=== PATIENT | male | born 1990 | race Caucasian/White ===

== ENCOUNTER → 2018-11-19 14:52 | Outpatient (CLI) | payer OTHER, SELFPAY ==
[2018-11-19 18:18] LABS: Thyroid Stim Hormone (TSH) 1.52 uIU/mL (0.358-3.74)
== END ==
PROVIDERS: Visit Provider Family Medicine
DX: R07.89 Other chest pain (principal)
CPT/HCPCS: 36415; 84443

== ENCOUNTER → 2019-10-14 18:06 | Outpatient (CLI) | payer OTHER, SELFPAY | PROVIDERS: Referring Provider Nurse Practitioner Family; Visit Provider Nurse Practitioner Family | DX: J02.9 Acute pharyngitis, unspecified (principal) | CPT/HCPCS: 87070 ==

== ENCOUNTER → 2021-07-05 15:45 | Outpatient (CLI) | payer OTHER, SELFPAY ==
--- NOTE | 2021-07-05 13:20 | VAS_PTH ---
PATIENT: JAYME WOODY LOC: [facility] U#:[id number] AGE/SX: 35/M ROOM: RE07/05/[address]: Dr. Alli Savage MD : 1990 BED: DIS: SPEC #: [id number] RECD: 07/05/21 15:30 STATUS: ROSA YEMI #: [id number] LUCHO: 07/05/21 13:[address]: Alli Savage DEPT: SURGICAL PATHOLOGY RECD BY: Inna Camara ENTERED: 07/06/21 08:13 SP TYPE: VAS OTHR DR: Dr. Troy Cardenas MD Tissues: A - Vas deferens, NOS B - Vas deferens, NOS Procedures: Surgery Specimen Level II HEADER OPERATION: Bilateral partial vasectomy PRE-OP DIAGNOSIS: Sterilization TISSUE SUBMITTED: A ? Right vas deferens, B ? Left vas deferens MICROSCOPIC DIAGNOSIS A. Right vas deferens, partial vasectomy: Completely transected segment of vas deferens, no pathologic diagnosis. B. Left vas deferens, partial vasectomy: Completely transected segment of vas deferens, no pathologic diagnosis. BRENDA:harriet 07/07/2021 MICROSCOPIC DESCRIPTION Slides are reviewed. GROSS DESCRIPTION A - Received is one container designated right vas deferens. The specimen consists of a tubular segment of donis soft tissue measuring 0.5 cm in length and 0.3 cm in diameter. The specimen is sectioned and submitted entirely in one cassette. B - Received is one container designated left vas deferens. The specimen consists of a tubular segment of donis soft tissue measuring 0.4 cm in length and 0.2 cm in diameter. The specimen is sectioned and submitted entirely in one cassette. / BRENDA:harriet 07/06/21 TC:4 CPT: 18973 x2
== END ==
PROVIDERS: PCP Family Medicine; Referring Provider Surgery; Visit Provider Surgery
DX: Z30.2 Encounter for sterilization (principal)
CPT/HCPCS: 88302

== ENCOUNTER → 2021-08-13 12:17 | Outpatient (CLI) | payer OTHER, SELFPAY ==
[2021-08-13 17:34] LABS: Semen Analysis Post Vas ABSENT
== END ==
PROVIDERS: PCP Family Medicine; Referring Provider Family Medicine; Visit Provider Surgery
DX: Z30.2 Encounter for sterilization (principal)
CPT/HCPCS: 89321

== ENCOUNTER → 2022-01-25 | Outpatient (CLI) | payer OTHER, SELFPAY ==
[2022-01-25 17:53] LABS: Absolute Lymphocyte Count 1.21 X10^3/uL (0.83-4.51); Absolute Neutrophil Count 5.1 X10^3/uL (2.0-7.7); Basophil# 0.06 X10^3/uL; Basophil% 0.9 % (0-1); Eosinophils% 1.5 % (0-5); Hematocrit 44.1 % (40-54); Lymphocyte # 1.21 X10^3/ul (0.83-4.51); Lymphocyte % 17.7 % (19-41); Mean Corpuscular Hgb 30.7 pg (27.0-32.0); Mean Corpuscular Volume 90.4 fL (80-94); Mean Platelet Vol. 9.9 fl (6.2-12.0); Monocyte# 0.36 X10^3/uL; Monocyte% 5.3 % (0-10); NRBC Flagged by Analyzer 0 % (0-5); Neutrophil # 5.09 X10^3/uL (2.7-7.7); Neutrophil % 74.3 % (47-70); Platelet Count 212 K/mm3 (150-450); RBC Distribution Width CV 12.3 % (11.6-14.6); RBC Distribution Width SD 40.4 fl (35.1-43.9); Red Blood Count 4.88 M/mm3 (4.6-6.2); White Blood Count 6.8 K/mm3 (4.4-11.0)
[2022-01-25 18:41] LABS: ALB/GLOB Ratio 1.6 RATIO (0.9-2.4); AST(SGOT) 23 U/L (15-37); Alanine Aminotransfer ALT/SGPT 34 U/L (16-61); Albumin, Serum 4.4 g/dL (3.2-5.0); Alkaline Phosphatase 84 U/L (45-117); Anion Gap 6 (5-15); BUN 13 mg/dL (7-18); BUN/Creat Ratio 14.8 RATIO (10-20); Chloride 104 mmol/L (98-107); Creatinine, Serum 0.88 mg/dL (0.70-1.30); EST Glomerular Filtration Rate 107 mL/min (>60); Est Glom Filt Rate - Afr Amer 129 mL/min (>60); Globulin 2.8 g/dL (2.2-4.2); Glucose 74 mg/dL (74-106); Potassium 3.5 mmol/L (3.5-5.1); Protein, Total 7.2 g/dL (6.4-8.2); Sodium Level 140 mmol/L (136-145)
== END | disposition home or self-care (01) ==
LOC: MFPLAB 16:59
PROVIDERS: PCP Family Medicine; Visit Provider Family Medicine
DX: R00.2 Palpitations (principal)
CPT/HCPCS: 36415; 80053; 84443; 85025

== ENCOUNTER → 2022-04-20 | Outpatient (CLI) | payer OTHER, SELFPAY ==
--- NOTE | 2022-04-20 14:37 | RAD_ITS ---
EXAM: XR CHEST, 2 VIEWS CLINICAL INDICATION: chest pain TECHNIQUE: Frontal and lateral views of the chest. This report was created using [employer] report generation technology. COMPARISON: None. FINDINGS: LUNGS AND PLEURAL SPACES: Hyperinflation which may represent air trapping. No pneumothorax. No effusion. HEART: Normal. Normal heart size. MEDIASTINUM: Central airways and mediastinal contour are unremarkable. BONES/JOINTS: No acute abnormality. SOFT TISSUES: Normal. RAD/Chest PA and Lateral IMPRESSION: Hyperinflation which may represent air trapping. Electronically Signed: Dixon Keene MD at 16:57 EDT ,
== END | disposition home or self-care (01) ==
LOC: RAD 14:36
PROVIDERS: PCP Family Medicine; Referring Provider Internal Medicine Cardiovascular Disease; Visit Provider Internal Medicine Cardiovascular Disease
DX: R00.2 Palpitations (principal); I47.2 Ventricular tachycardia; R07.89 Other chest pain
CPT/HCPCS: 71046

== ENCOUNTER 2022-04-26 09:37 | Emergency (ER) | payer OTHER, SELFPAY ==
[2022-04-26 09:38] VITALS: BP 113/75; PULSE 70; RESP 14; TEMP 35.8; O2SAT 100; BMI 17.0
--- NOTE | 2022-04-26 09:56 | EKG12_ITS ---
Test Reason : CHEST\OTHER Blood Pressure : / mmHG Vent. Rate : 059 BPM Atrial Rate : 059 BPM P-R Int : 136 ms QRS Dur : 090 ms QT Int : 400 ms P-R-T Axes : 076 078 072 degrees QTc Int : 396 ms Sinus bradycardia Otherwise normal ECG Confirmed by YASMIN QUINONEZ, DALE ([id number]), offline editor SIDNEY SMALL ([id number]) on 04/27/2022 11:27:29 AM Referred By: NONA Confirmed By:DALE HOFFMAN MD
--- NOTE | 2022-04-26 09:57 | EDS_ITS ---
HPI History of Present Illness Chief Complaint: Chest Pain Detail of Chief Complaint: Chest pain and palpitations Informant: patient Narrative Narrative: Patient presents secondary to chest pressure and palpitations. Symptoms of been ongoing for quite some time and he recently wore a Holter monitor ordered by his PCP. This revealed evidence of PACs, PVCs, nonsustained V. tach, atrial tachycardia. Patient was seen by Dr. Lucas recently with plan to undergo echocardiogram and stress echo. This is scheduled for May. Patient states that he had a lot of palpitations last evening. He still has some palpitations currently with chest pressure. When he called Dr. Lucas's office this morning he was encouraged to come to the emergency room. [facility] Medical History Anxiety Back problem Consultation for sterilization GERD (gastroesophageal reflux disease) NSVT (nonsustained ventricular tachycardia) Home Medications fluticasone propionate 50 mcg/actuation nasal spray,suspension (Flonase Allergy Relief) 1 spray intranasal DAILY PRN allergy symptoms 04/20/22 [History Last Taken Unknown] metoprolol succinate 25 mg tablet,extended release 24 hr (Toprol XL) 25 mg PO DAILY #30 tabs 04/26/22 [Rx Last Taken Unknown] Allergy/AdvReac Type Severity Reaction Status Date / Time promethazine [From Phenergan] Allergy Intermediate psychotic Verified 04/26/22 09:38 like reaction Family History Daughter Asthma Mother Breast cancer Grandfather Diabetes Kidney disease Surgical History No history of previous surgery Social History Smoking Status: Current every day smoker tobacco type: cigarettes alcohol intake: current details: Rare substance use type: does not use caffeine: Yes Type: coffee Number of servings: 1 ROS ROS ED Constitutional Constitutional ED: Denies chills or fever(s) Eyes Eyes: Denies change in vision or discharge from eye(s) ENT ENT ED: Denies discharge from eye(s), rhinorrhea or sore throat Cardiovascular Cardiovascular: Reports chest pain and palpitations Respiratory/Chest Respiratory/Chest: Denies cough or dyspnea Gastrointestinal Gastrointestinal: Denies abdominal pain, diarrhea, nausea or vomiting Genitourinary Genitourinary ED: Denies dysuria Musculoskeletal Musculoskeletal: Denies back pain or extremity pain Integumentary Denies Abrasions or rash Neurologic Neurologic: Denies headache(s) or weakness Psychiatric Psychiatric: Denies anxiety or depression Allergic/Immunologic Allergic/Immunologic ED: Denies lip swelling or urticaria EXAM Physical Exam Const Vital Signs: 04/26/22 09:38 04/26/22 09:59 Temperature 96.5 F L Temperature Source Temporal Pulse Rate 70 Respiratory Rate 14 Respiratory Effort Normal Non-Labored Respiratory Pattern Normal Blood Pressure 113/75 Blood Pressure Mean 87 Pulse Ox 100 Oxygen Delivery Method Room Air Positive well nourished and well developed General Appearance ED: well developed HEENT Reports normocephalic and head/scalp atraumatic Eyes PERRL and EOMs intact bilaterally Neck supple Chest Wall inspection of chest normal and palpation of chest normal Resp normal respiratory effort and clear to auscultation bilaterally Cardio regular rate and regular rhythm GI normal to inspection, nondistended, normoactive bowel sounds Palpation: soft Back/Spine no CVA tenderness Extremity normal to inspection Neuro oriented x3 and no sensory deficits noted Sensorium / Orientation: alert Motor Exam: strength 5/5 throughout Psych mental status grossly normal Skin no rashes or lesions noted Heart Score History: Slightly/Non-Suspicious ECG: Normal Age: </= 45 years Risk Factors: No Risk Factors Troponin: </= Normal Limit Score: 0 MDM MDM MDM Narrative Medical decision making narrative: Patient placed on cardiac monitor technician. EKG, chest x-ray, lab work obtained. Lab Data Attestation: I reviewed the patient's lab results. Labs: Laboratory Results - last 24 hr 04/26/22 04/26/22 04/26/22 10:05 10:05 10:05 WBC 4.8 RBC 4.86 Hgb 15.4 Hct 43.2 MCV 88.9 MCH 31.7 MCHC 35.6 RDW Std Deviation 39.4 RDW Coeff of Fiordaliza 12.1 Plt Count 179 MPV 9.4 Immature Gran % (Auto) 0.200 Neut % (Auto) 67.3 Lymph % (Auto) 22.3 Falls % (Auto) 7.2 Eos % (Auto) 1.9 Baso % (Auto) 1.1 H Absolute Neuts (auto) 3.2 Absolute Lymphs (auto) 1.06 Nucleated RBC % 0 D-Dimer Quant (PE/DVT) < 0.27 L Sodium 141 Potassium 4.4 Chloride 109 H Carbon Dioxide 31.0 Anion Gap 1 L BUN 15 Creatinine 0.84 Estim Creat Clear Calc 115.17 Est GFR (MDRD) Af Amer 135 Est GFR (MDRD) Non-Af 111 BUN/Creatinine Ratio 17.8 Glucose 95 Calcium 8.9 Troponin I High Sens 8 Radiography Chest X-Ray - ED: 1 View and - (Hyperinflation with no other acute abnormalities noted.) Diagnostic Testing: Clinical Impression(s) from Imaging Studies Chest X-Ray 04/26/22 10:10 IMPRESSION: Hyperinflation. The lungs are clear. Electronically Signed: Kennedy Brown MD at 10:48 EDT , EKG Initial EKG: Attestation: I personally reviewed and interpreted this EKG as follows: Interpretation: Sinus Bradycardia (Sinus bradycardia 59 bpm. No acute ischemia. No ectopy.) Treatment and Re-Evaluation Narrative: Test results are unremarkable including a normal CBC, chemistry studies, troponin, D-dimer. Chest x-ray reveals hyperinflation with no infiltrate. EKG reveals no obvious abnormalities. I did speak with Dr. Lucas. In light of the patient's increased palpitations he does feel we need to start patient on low-dose Toprol XL. He will only be started on 25 mg secondary to his relatively low heart rate. This was discussed with the patient. He was advised to monitor his symptoms of for several days while taking this. Plan will be to continue with outpatient testing as previously scheduled. If symptoms worsen he is to call the office. Return instructions are also provided. Discharge Plan Triage Chief Complaint: Chest Pain Other Complaint: Palpitations ED Provider: Jahaira Dash Dx/Rx/DC Orders Clinical Impression: Palpitations Instructions: ED Palpitations Prescriptions: New metoprolol succinate [Toprol XL] 25 mg tablet extended release 24 hr 25 mg PO DAILY Qty: 30 0RF No Action fluticasone propionate [Flonase Allergy Relief] 50 mcg/actuation spray,suspension 1 spray intranasal DAILY PRN (Reason: allergy symptoms) Rx Instructions: administer into each nostril Primary Care Provider: Troy Cardenas Referrals: Troy Lucas MD [Med Staff - Active Staff] - Keep Tara appointment Troy Cardenas MD [Primary Care Provider] - Disposition Disposition: Home, Self Care
[2022-04-26 10:10] LABS: Absolute Lymphocyte Count 1.06 X10^3/uL (0.83-4.51); Absolute Neutrophil Count 3.2 X10^3/uL (2.0-7.7); Basophil# 0.05 X10^3/uL; Basophil% 1.1 % (0-1); Eosinophil# 0.09 X10^3/uL; Eosinophils% 1.9 % (0-5); Hematocrit 43.2 % (40-54); Hemoglobin 15.4 g/dL (13.0-16.5); Lymphocyte # 1.06 X10^3/ul (0.83-4.51); Lymphocyte % 22.3 % (19-41); Mean Corp Hgb Conc 35.6 g/dL (32-36); Mean Corpuscular Hgb 31.7 pg (27.0-32.0); Mean Corpuscular Volume 88.9 fL (80-94); Mean Platelet Vol. 9.4 fl (6.2-12.0); Monocyte# 0.34 X10^3/uL; Monocyte% 7.2 % (0-10); NRBC Flagged by Analyzer 0 % (0-5); Neutrophil % 67.3 % (47-70); Platelet Count 179 K/mm3 (150-450); RBC Distribution Width CV 12.1 % (11.6-14.6); RBC Distribution Width SD 39.4 fl (35.1-43.9); Red Blood Count 4.86 M/mm3 (4.6-6.2); White Blood Count 4.8 K/mm3 (4.4-11.0)
--- NOTE | 2022-04-26 10:10 | RAD_ITS ---
STUDY: X-RAY CHEST REASON FOR EXAM: Male, 32 years old. Chest pain and palpitations. TECHNIQUE: Single AP portable view of the chest. COMPARISON: Comparison is made with prior study dated 04/20/2022. FINDINGS: EKG electrodes are seen. Hyperinflation. The lungs are clear. There is no demonstrated pleural abnormality. Normal size heart. Normal mediastinum and delores. Normal visualized pulmonary arteries. Normal visualized aortic arch and descending thoracic aorta. Normal visualized thoracic spine. Normal visualized ribs, clavicles, and shoulders. There is no demonstrated abnormality of the visualized soft tissue structures of the upper abdomen. RAD/Chest 1 View (Portable) IMPRESSION: Hyperinflation. The lungs are clear. Electronically Signed: Kennedy Brown MD at 10:48 EDT ,
[2022-04-26 10:21] LABS: D-Dimer Quantitative (DVT/PE) < 0.27 FEU/ug/m (0.27-0.49)
[2022-04-26 10:28] LABS: Anion Gap 1 (5-15); BUN 15 mg/dL (7-18); BUN/Creat Ratio 17.8 RATIO (10-20); Calcium,Total 8.9 mg/dL (8.5-10.1); Chloride 109 mmol/L (98-107); Creatinine, Serum 0.84 mg/dL (0.70-1.30); EST Glomerular Filtration Rate 111 mL/min (>60); Est Glom Filt Rate - Afr Amer 135 mL/min (>60); Estimated Creatinine Clearance 115.17 ml/min; Glucose 95 mg/dL (74-106); Potassium 4.4 mmol/L (3.5-5.1); Sodium Level 141 mmol/L (136-145); Troponin-I HS (w/2H Reflex) 8 pg/mL (3.0-78.0)
[2022-04-26 11:30] VITALS: BP 105/66; PULSE 56; RESP 16; O2SAT 99
[2022-04-26 12:08] LABS: Reflex Troponin-HS? (from REC) Y
== END 2022-04-26 11:30 | disposition home or self-care (01) ==
PROVIDERS: Emergency Provider Emergency Medicine; PCP Family Medicine; Visit Provider Emergency Medicine
DX: R00.2 Palpitations (principal); F17.210 Nicotine dependence, cigarettes, uncomplicated
CPT/HCPCS: 71045; 80048; 84484; 85025; 85379; 93005; 99284; A4216

== ENCOUNTER → 2022-05-18 | Outpatient (CLI) | payer OTHER, SELFPAY ==
--- NOTE | 2022-05-18 13:14 | STE_ITS ---
Reason For Study: PALPS, CHEST TIGHTNESS Stress Results Protocol: Michael Protocol Maximum Predicted HR: 187 bpm Target HR: 159 bpm % Maximum Predicted HR: 89 % DurationHeart Rate Stage (mm:ss) (bpm) BP BASELINE 65 100/54 STAGE 1 3:00 108 120/70 STAGE 2 3:00 122 140/70 STAGE 3 3:00 136 136/70 STAGE 4 3:00 157 142/60 STAGE 5 0:30 166 / RECOVERY 104 100/62 Stress Duration: 12:30 mm:ss Maximum Stress HR: 166 bpm METS: 15 Baseline Echocardiogram Findings Stress Echo Wall motion Data Resting WM Intermediate WM Stress WM Resting Wall Motion Wall Motion Stress All segments Normal. All segments Hyperkinetic. Ejection Fraction 55 %. Ejection Fraction 65 %. Stress Results Heart rate response: Technically adequate (percent predicted maximal heart rate greater than 90%) Blood pressure response: Normal resting blood pressure-appropriate response Rhythm: Isolated PVC during exercise and recovery Functional capacity: Good Stopped secondary to: Leg discomfort. EKG Data Baseline ECG: Normal sinus. Exercise ECG: Somatic/motion artifact with no obvious ECG changes. Symptoms with Stress No complaint of chest discomfort during exercise or recovery. ECHO/Stress Test Echo w/o Contrast Interpretation Summary Negative (adequate) stress echocardiogram Ordering Physician: Troy Lucas Referring Physician: Troy Lucas Performed By: Ailin Gale RDCS
--- NOTE | 2022-05-18 13:14 | ECHOD_ITS ---
Reason For Study: Arrhythmia Procedure This was a 2D Doppler, Color Flow transthoracic echocardiogram. The exam was of adequate technical quality. Exam performed in department. Left Ventricle Normal LV size. Left ventricular systolic function is normal. The estimated ejection fraction is 55 %. No evidence for diastolic dysfunction. No regional wall motion abnormalities noted. Right Ventricle Normal RV size. Normal systolic function. Atria Normal left atrium. Normal right atrium. No doppler evidence for ASD. Mitral Valve There is no mitral annular calcification. Normal mitral valve. Trivial mitral valve insufficiency. Tricuspid Valve Normal tricuspid valve. Trivial tricuspid valve insufficiency. Unable to estimate RV systolic pressure due to insufficient tricuspid regurgitant envelope. Aortic Valve Trisinus/trileaflet aortic valve. Normal aortic valve. Pulmonic Valve The pulmonic valve is not well visualized. Great Vessels Normal sized aortic root. Pericardium/Pleural No pericardial effusion. MMode/2D Measurements & Calculations LVIDd: 4.4 cm IVSd: 0.67 cm Ao root diam: 2.9 cm LVIDs: 3.1 cm LVPWd: 0.97 cm RVDd: 2.8 cm FS: 30.9 % LAV(MOD-bp): 28.6 ml LVAd ap4: 28.3 cm2 LVAd ap2: 32.5 cm2 LAV(MOD-bp) Indexed: 14.2 ml/m2 LVLd ap4: 7.9 cm LVLd ap2: 8.4 cm LAV(MOD-sp2): 23.1 ml EDV(MOD-sp4): 85.4 ml EDV(MOD-sp2): 103.0 ml LAV(MOD-sp4): 34.6 ml EDV(sp4-el): 85.7 ml EDV(sp2-el): 106.6 ml LVAs ap4: 17.6 cm2 LVAs ap2: 19.1 cm2 LVLs ap4: 7.0 cm LVLs ap2: 7.3 cm ESV(MOD-sp4): 37.5 ml ESV(MOD-sp2): 41.5 ml ESV(sp4-el): 37.8 ml ESV(sp2-el): 42.6 ml EF(MOD-sp4): 56.1 % EF(MOD-sp2): 59.7 % EF(sp4-el): 55.8 % SV(MOD-sp4): 48.0 ml SV(MOD-sp2): 61.5 ml SV(sp4-el): 47.8 ml LA dimension(2D): 3.2 cm LA A4 area: 14.5 cm2 RA A4 area: 10.7 cm2 Doppler Measurements & Calculations MV E max tone: 61.5 cm/sec Lat Peak E' Tone: 17.7 cm/sec Med Peak E' Tone: 11.6 cm/sec MV A max tone: 40.7 cm/sec E/E' lat: 3.5 E/E' med: 5.3 MV E/A: 1.5 Ao V2 max: 123.0 cm/sec LV V1 max: 106.4 cm/sec PA V2 max: 98.3 cm/sec Ao max P.0 mmHg LV V1 max P.5 mmHg ECHO/Echo Complete Interpretation Summary Left ventricular systolic function is normal. The estimated ejection fraction is 55 %. Trivial mitral valve insufficiency. Trivial tricuspid valve insufficiency. Unable to estimate RV systolic pressure due to insufficient tricuspid regurgita nt envelope. No evidence for diastolic dysfunction. Ordering Physician: Troy Lucas Referring Physician: Troy Cardenas Performed By: Ailin Gale, AGUEDA
== END | disposition home or self-care (01) ==
LOC: CVS 13:13
PROVIDERS: PCP Family Medicine; Referring Provider Internal Medicine Cardiovascular Disease; Visit Provider Internal Medicine Cardiovascular Disease
DX: R00.2 Palpitations (principal); I47.2 Ventricular tachycardia; R07.89 Other chest pain
CPT/HCPCS: 93017; 93306; 93350

== ENCOUNTER → 2023-01-31 | Outpatient (CLI) | payer OTHER, SELFPAY ==
--- NOTE | 2023-01-31 13:05 | RAD_ITS ---
STUDY: X-RAY CHEST REASON FOR EXAM: Male, 32 years old. Muscle strain with left rib pain. TECHNIQUE: Frontal and lateral views of the chest. COMPARISON: April 26, 2022. FINDINGS: Marked hyperinflation with flattening of hemidiaphragms and hyperlucency, compatible with COPD, unchanged. There is no demonstrated pleural abnormality. Normal size heart. Normal mediastinum and delores. Normal visualized pulmonary arteries. Normal visualized aortic arch and descending thoracic aorta. Normal visualized thoracic spine. Normal visualized ribs, clavicles, and shoulders. No abnormality of the visualized soft tissue structures of the upper abdomen. RAD/Chest PA and Lateral IMPRESSION: Stable findings compatible with COPD. No acute or active cardiopulmonary disease. Electronically Signed: Sachin Myrick MD at 14:50 EDT ,
--- NOTE | 2023-01-31 13:05 | RAD_ITS ---
STUDY: X-RAY - UNILATERAL RIBS ( LEFT ) REASON FOR EXAM: Male, 32 years old. Left rib pain. TECHNIQUE: 4 view(s) of the ribs. COMPARISON: None. FINDINGS: No displaced rib fracture identified. Mild hyperinflation noted. RAD/Ribs Unil 2V No CXR IMPRESSION: Hyperinflation with no displaced rib fracture. Electronically Signed: Sachin Myrick MD at 14:57 EDT ,
== END | disposition home or self-care (01) ==
PROVIDERS: PCP Family Medicine; Referring Provider Family Medicine; Visit Provider Family Medicine
DX: M94.0 Chondrocostal junction syndrome [Tietze] (principal)
CPT/HCPCS: 71046; 71100

== ENCOUNTER 2023-04-29 18:53 | Emergency (ER) | payer OTHER, SELFPAY ==
[2023-04-29 18:54] VITALS: BP 126/73; PULSE 73; RESP 15; TEMP 36.2; O2SAT 99; BMI 16.8
--- NOTE | 2023-04-29 19:10 | EKG12_ITS ---
Test Reason : PALPITATIONS Blood Pressure : / mmHG Vent. Rate : 070 BPM Atrial Rate : 070 BPM P-R Int : 112 ms QRS Dur : 092 ms QT Int : 380 ms P-R-T Axes : 011 072 069 degrees QTc Int : 410 ms Normal sinus rhythm Normal ECG When compared with ECG of 26-APR-2022 09:50, No significant change was found Confirmed by SUJATA BUSTAMANTE MD ([id number]), photographic editor MEMO BAI ([id number]) on 06/21/2023 2:05:07 PM Referred By: AZAEL Confirmed By:SUJATA BUSTAMANTE MD
[2023-04-29] MEDS: 0.9% Normal Saline 1,000 ML 1000 ML IV (19:19)
--- NOTE | 2023-04-29 19:29 | EDS_ITS ---
<Statement entered by Jahaira Dash MD - 04/29/23 21:34> I have personally performed a face to face assessment of the patient and have reviewed the LYNDSEY Note. Patient presents with 1 week history of intermittent palpitations. He will describe a fluttering sensation in his chest that will go on just a short time. He denies feeling lightheaded or as if he is going to pass out. Patient does have a history of SVT as well as V. tach. He states he is currently being evaluated for possible Marfan syndrome. Patient sitting upright in bed no acute distress. Head and neck examination unremarkable. Heart is regular rate and rhythm. Lung sounds are clear. Abdomen is soft and nontender. Neuro exam is unremarkable. Patient placed on conveyor monitor. Lab work unremarkable other than slight increase to his creatinine to 1.4. Last year his creatinine was 0.84. Patient was given a liter of fluids here. EKG is sinus with no evidence of acute ischemia. Normal intervals. Patient is reassured with the findings. He will continue close follow-up. Return instructions were provided. HPI History of Present Illness Chief Complaint: Palpitations Narrative Narrative: Patient is a 33-year-old male with history of anxiety, palpitations, who is currently getting worked up for Marfan syndrome presents to the emergency department with complaints of 1 week of ongoing palpitations, in the last 40 hours, he states he got more anxious, he actually started Zoloft that his primary care doctor gave him, he has been taking 2 days of this. He denies any fevers or chills. Denies any dizziness. He denies any sharp chest pain, he states sometimes he does feel pressure. He denies any diaphoresis. Patient has been here before for similar symptoms [facility] Medical History Anxiety Back problem Consultation for sterilization GERD (gastroesophageal reflux disease) NSVT (nonsustained ventricular tachycardia) Home Medications diltiazem HCl 120 mg capsule,extended release 24 hr 120 mg PO QHS #30 caps 05/12/22 [Rx Last Taken Unknown] sertraline 25 mg tablet 25 mg PO QHS 04/29/23 [History Last Taken Unknown] Allergy/AdvReac Type Severity Reaction Status Date / Time promethazine [From Phenergan] Allergy Intermediate psychotic Verified 08/26/23 19:20 like reaction Family History Daughter Asthma Mother Breast cancer Grandfather Diabetes Kidney disease Surgical History No history of previous surgery Social History Smoking Status: Former smoker alcohol intake: current details: Rare substance use type: does not use caffeine: Yes Type: coffee Number of servings: 1 ROS ROS ED ROS Narrative Constitutional: Negative for fever, chills, weight loss, weakness Eyes: Negative for vision loss, vision change, double vision ENT: Negative for any sore throat, ear pain, congestion Cardiovascular: Negative for any chest pain, tightness. Palpitations Respiratory: Negative for any cough, sputum production, hemoptysis, dyspnea, dyspnea on exertion, orthopnea Gastrointestinal: Negative for any abdominal pain, nausea, vomiting, diarrhea, constipation, blood in stool, blood in vomit : Negative for any urinary frequency, dysuria, retention, blood in urine Muscle skeletal: Negative for any muscle joint pain, stiffness, myalgias, arthralgias, neck pain, back pain Neurological: Negative for any headache, syncope, numbness or tingling, dizziness Skin: Negative for any rashes, lumps, itching, abrasions, lacerations Psychiatric: Negative for any depression, stress, suicidal ideation, homicidal ideation. Anxiety Hematologic: Negative for any easy bruising, excessive bruising, easy bleeding Allergies: Negative for any eczema, hives, rash EXAM Physical Exam Narrative Exam Narrative: Vital signs reviewed. HEET: Head normocephalic atraumatic, TMs clear bilaterally. Posterior pharynx is clear, moist mucous membranes. Nares clear bilaterally. Neck: Supple with no lymphadenopathy or tenderness. No signs of meningismus, negative jolt sign. Cardiac: Regular rate and rhythm no murmurs gallops or rubs, equal peripheral pulses bilaterally. Respiratory: Lungs clear to auscultation bilaterally. No chest tenderness. Abdomen: Soft, nontender, nondistended. No abdominal bruit or pulsatile masses. No hepatosplenomegaly Extremities: No peripheral edema, no signs of gross trauma or deformity. Active full range of motion of all extremities. Neuro: Cranial nerves II through XII intact, no focal neurological deficits. Skin: Clean dry and intact with no rash, purpura, petechiae, vesicles or pustules. Backs/flank: No CVA tenderness, no midline spinal tenderness, no deformity. Psych: Normal mood and affect. No SI, HI or acute psychosis. Const Vital Signs: 04/29/23 18:54 04/29/23 19:22 Temperature 97.2 F L Temperature Source Temporal Pulse Rate 73 Respiratory Rate 15 Respiratory Effort Normal Blood Pressure 126/73 H Blood Pressure Mean 90 Pulse Ox 99 Oxygen Delivery Method Room Air Positive well nourished and well developed General Appearance ED: well developed MDM MDM Lab Data Labs: Laboratory Results - last 24 hr 04/29/23 19:15 WBC 6.6 RBC 4.39 L Hgb 14.3 Hct 38.7 L MCV 88.2 MCH 32.6 H MCHC 37.0 H RDW Std Deviation 38.5 RDW Coeff of Fiordaliza 11.9 Plt Count 215 MPV 9.5 Immature Gran % (Auto) 0.200 Neut % (Auto) 69.0 Lymph % (Auto) 21.8 [place] % (Auto) 6.2 Eos % (Auto) 2.3 Baso % (Auto) 0.5 Absolute Neuts (auto) 4.6 Absolute Lymphs (auto) 1.44 Nucleated RBC % 0 Sodium 142 Potassium 3.6 Chloride 110 H Carbon Dioxide 27.0 Anion Gap 5 BUN 13 Creatinine 1.43 H Estim Creat Clear Calc 66.31 Est GFR (MDRD) Af Amer 73 Est GFR (MDRD) Non-Af 60 BUN/Creatinine Ratio 9.1 L Glucose 102 Calcium 8.9 Troponin I High Sens 9 Radiography Diagnostic Testing: Clinical Impression(s) from Imaging Studies Chest X-Ray 04/29/23 19:30 IMPRESSION: Mild hyperaeration. Electronically Signed: Dennis Anglin DO at 19:45 EDT Reading Location ID and State: [facility] / [place] Tel [phone], Service support , EKG Normal sinus rhythm: Attestation: I personally reviewed and interpreted this EKG as follows: Comments: Normal sinus rhythm, rate of 70 bpm, ID 112 ms,, no acute ST elevation, no acute infarct noted Treatment and Re-Evaluation :: Patient appears generally well, patient appears nontoxic, vital signs are stable. Patient presents to the emergency department with concerns of palpitations, anxiety, he is here for evaluation. Patient is currently getting worked up for Marfan's syndrome, however patient is in no distress. Patient appears to be in no distress. Patient was given cardiac work-up including a troponin, basic laboratory eval as well as a chest x-ray. Patient received a two-view chest x-ray to her by ER physician, this showed mild hyperaeration however no acute process. Mediastinum within normal limits. Patient was given 1 L normal saline. Patient's CBC was unremarkable, chemistries show slight increase in creatinine at 1.43, roughly 1 year ago he was 0.84. Patient did receive 1 L of fluids. Patient troponin was negative. I did speak with the patient regarding his fluid intake. He is instructed to increase his fluids probably he will follow-up outpatient as well as receive repeat blood work. All questions answered, he is given strict return precaution. Patient happy with plan of care, he will allow the [facility] 6 weeks to work. All questions answered, patient stable for discharge Discharge Plan Triage Chief Complaint: Palpitations ED Midlevel Provider: Troy Solomon ED Provider: Jahaira Dash Dx/Rx/DC Orders Clinical Impression: Heart palpitations, Acute renal insufficiency Instructions: ED Palpitations, ED Renal Insufficiency Prescriptions: No Action sertraline 25 mg tablet 25 mg PO QHS diltiazem HCl 120 mg capsule,extended release 24hr 120 mg PO QHS Qty: 30 11RF Primary Care Provider: Troy Cardenas Referrals: Troy Cardenas MD [Primary Care Provider] - Activity Restrictions/Additional Instructions: Please follow-up outpatient. Return for any worsening symptoms. Disposition Disposition: Home, Self Care
--- NOTE | 2023-04-29 19:30 | RAD_ITS ---
INDICATION: palpitations EXAMINATION/TECHNIQUE: X-RAY - XR Chest 2 Views COMPARISON: FINDINGS: LINES/DEVICES: None. LUNGS: Hyperaeration. No consolidation, edema or effusion. No pneumothorax. MEDIASTINUM AND CARDIOVASCULAR STRUCTURES: Cardiac silhouette not enlarged. Central airways and mediastinal contour are unremarkable. BONES AND SOFT TISSUES: Unremarkable. RAD/Chest PA and Lateral IMPRESSION: Mild hyperaeration. Electronically Signed: Dennis Anglin DO at 19:45 EDT ,
[2023-04-29 19:44] LABS: Absolute Lymphocyte Count 1.44 X10^3/uL (0.83-4.51); Absolute Neutrophil Count 4.6 X10^3/uL (2.0-7.7); Basophil# 0.03 X10^3/uL; Basophil% 0.5 % (0-1); Eosinophil# 0.15 X10^3/uL; Eosinophils% 2.3 % (0-5); Hematocrit 38.7 % (40-54); Hemoglobin 14.3 g/dL (13.0-16.5); Lymphocyte # 1.44 X10^3/ul (0.83-4.51); Lymphocyte % 21.8 % (19-41); Mean Corpuscular Hgb 32.6 pg (27.0-32.0); Mean Corpuscular Volume 88.2 fL (80-94); Mean Platelet Vol. 9.5 fl (6.2-12.0); Monocyte# 0.41 X10^3/uL; Monocyte% 6.2 % (0-10); NRBC Flagged by Analyzer 0 % (0-5); Neutrophil # 4.56 X10^3/uL (2.7-7.7); Platelet Count 215 K/mm3 (150-450); RBC Distribution Width CV 11.9 % (11.6-14.6); RBC Distribution Width SD 38.5 fl (35.1-43.9); Red Blood Count 4.39 M/mm3 (4.6-6.2); White Blood Count 6.6 K/mm3 (4.4-11.0)
[2023-04-29 20:12] LABS: Anion Gap 5 (5-15); BUN 13 mg/dL (7-18); BUN/Creat Ratio 9.1 RATIO (10-20); Calcium,Total 8.9 mg/dL (8.5-10.1); Chloride 110 mmol/L (98-107); Creatinine, Serum 1.43 mg/dL (0.70-1.30); EST Glomerular Filtration Rate 60 mL/min (>60); Est Glom Filt Rate - Afr Amer 73 mL/min (>60); Estimated Creatinine Clearance 66.31 ml/min; Glucose 102 mg/dL (74-106); Potassium 3.6 mmol/L (3.5-5.1); Sodium Level 142 mmol/L (136-145); Troponin-I HS 9 pg/mL (3.0-78.0)
== END 2023-04-29 20:56 | disposition home or self-care (01) ==
PROVIDERS: Nurse Practitioner; Emergency Provider Emergency Medicine; PCP Family Medicine; Visit Provider Emergency Medicine
DX: R00.2 Palpitations (principal); F41.9 Anxiety disorder, unspecified; Z87.891 Personal history of nicotine dependence; N28.9 Disorder of kidney and ureter, unspecified; Z79.899 Other long term (current) drug therapy
CPT/HCPCS: 71046; 80048; 84484; 85025; 93005; 99283

== ENCOUNTER → 2023-07-03 | Outpatient (CLI) | payer OTHER, SELFPAY ==
[2023-07-03 16:57] LABS: Anion Gap 4 (5-15); BUN 11 mg/dL (7-18); BUN/Creat Ratio 11.9 RATIO (10-20); Calcium,Total 9.4 mg/dL (8.5-10.1); Chloride 107 mmol/L (98-107); Cholesterol 134 mg/dL (200); Creatinine, Serum 0.93 mg/dL (0.70-1.30); EST Glomerular Filtration Rate 99 mL/min (>60); Est Glom Filt Rate - Afr Amer 120 mL/min (>60); Glucose 77 mg/dL (74-106); High Density Lipoprotein 56 mg/dL; Potassium 4.3 mmol/L (3.5-5.1); Sodium Level 139 mmol/L (136-145); Triglycerides 71 mg/dL; Very Low Density Lipoprotein 14 mg/dL (5-40)
== END | disposition home or self-care (01) ==
LOC: MFPLAB 12:07
PROVIDERS: PCP Family Medicine; Visit Provider Family Medicine
DX: Z00.00 Encounter for general adult medical examination without abnormal findings (principal)
CPT/HCPCS: 36415; 80048; 80061

== ENCOUNTER 2023-07-05 06:30 | Emergency (ER) | payer SELFPAY ==
[2023-07-05 06:31] VITALS: BP 105/73; PULSE 54; RESP 18; TEMP 36.4; O2SAT 98; BMI 18.7
--- NOTE | 2023-07-05 07:09 | EKG12_ITS ---
Test Reason : Blood Pressure : / mmHG Vent. Rate : 053 BPM Atrial Rate : 053 BPM P-R Int : 120 ms QRS Dur : 082 ms QT Int : 422 ms P-R-T Axes : 054 076 074 degrees QTc Int : 395 ms Sinus bradycardia Otherwise normal ECG Confirmed by REMI QUINONEZ, CLIFTON ([id number]), make up editor MEMO BAI ([id number]) on 07/17/2023 7:56:17 AM Referred By: Confirmed By:PIOTR KHALIL MD
--- NOTE | 2023-07-05 07:10 | EX.ED.DYSGE1 ---
HPI History of Present Illness Chief Complaint: Syncope Detail of Chief Complaint: Near syncope. No LOC. Informant: patient Onset/Context/Timing Onset: Today Context: Sudden Onset Current Severity: Gone Maximum Severity: Moderate Narrative Narrative: 33-year-old male history of nonsustained V. tach. Today he was upstairs training for his new job. He had a near syncopal episode. He did not pass out. He did not fall or hit his head. He had no chest pain, shortness of breath or abdominal pain. He denies any nausea, vomiting or diarrhea. He said he ate a very small breakfast this morning. Currently he is feeling better than headache. Prior similar symptoms: No Recent Illness/Hospitalization: No PFSH PFSH Medical History Anxiety Back problem Consultation for sterilization GERD (gastroesophageal reflux disease) NSVT (nonsustained ventricular tachycardia) Home Medications sertraline 25 mg tablet 25 mg PO QHS 04/29/23 [History Last Taken Unknown] diltiazem HCl 120 mg capsule,extended release 24 hr 120 mg PO QHS #90 caps 05/22/23 [Rx Last Taken Unknown] Allergy/AdvReac Type Severity Reaction Status Date / Time promethazine [From Phenergan] Allergy Intermediate psychotic Verified 04/29/23 19:20 like reaction Family History Daughter Asthma Mother Breast cancer Grandfather Diabetes Kidney disease Surgical History No history of previous surgery Social History Smoking Status: Former smoker alcohol intake: current details: Rare substance use type: does not use caffeine: Yes Type: coffee Number of servings: 1 ROS ROS ED ROS Narrative Denies recent illness. Review of Systems ROS Unobtainable: Denies due to encephalopathy Constitutional Constitutional ED: Denies chills or fever(s) Eyes Eyes: Denies blurry vision ENT ENT ED: Denies ear pain Cardiovascular Cardiovascular: Denies chest pain, palpitations or racing heartbeat Respiratory/Chest Respiratory/Chest: Denies cough or dyspnea Gastrointestinal Gastrointestinal: Denies abdominal pain, diarrhea, nausea or vomiting Genitourinary Genitourinary ED: Denies dysuria or hematuria Musculoskeletal Musculoskeletal: Denies arthralgias, back pain or myalgias Integumentary Denies abscess or Abrasions Neurologic Neurologic: Reports headache(s) Psychiatric Psychiatric: Denies anxiety Endocrine Endocrinology: Denies cold intolerance Hematologic/Lymphatic Hematologic/Lymphatic: Reports none Allergic/Immunologic Allergic/Immunologic ED: Denies mouth swelling, tongue swelling or urticaria EXAM Physical Exam Narrative Exam Narrative: Well-appearing 33-year-old male. Vital signs stable afebrile. He does not look septic toxic or in any distress. Sitting upright in bed. HEENT exam unremarkable. No signs of trauma. Pupils round react to light. No facial droop. Normal speech. Neck nontender. No JVD. Lungs clear to auscultation bilaterally. Heart regular rhythm rate about 60 no murmur. Chest wall and ribs nontender. Abdomen soft nontender. No peritoneal signs. Back nontender. Moving all 4 extremities. 5-5 motor strength. Dorsi plantarflexion intact. Normal range of motion. No deformity. Nontender. No edema in the lower extremities. Neurologically is awake and alert with no focal motor deficits. NIH score is 0. Answering questions and following commands. Const Vital Signs: 07/05/23 06:31 07/05/23 07:29 Temperature 97.6 F L Temperature Source Oral Pulse Rate 54 L Pulse Rate [Lying] 56 L Pulse Rate [Sitting (for 1 minute prior to obtaining)] 64 Pulse Rate [Standing (for 1 minute prior to obtaining)] 62 Respiratory Rate 18 Blood Pressure 105/73 Blood Pressure [Lying] 99/60 Blood Pressure [Sitting (for 1 minute prior to obtaining)] 106/71 Blood Pressure [Standing (for 1 minute prior to obtaining)] 98/69 Blood Pressure Mean 83 Blood Pressure Mean [Lying] 73 Blood Pressure Mean [Sitting (for 1 minute prior to obtaining)] 82 Blood Pressure Mean [Standing (for 1 minute prior to obtaining)] 78 Pulse Ox 98 Oxygen Delivery Method Room Air Positive well nourished and well developed; Negative for obese, cachectic, contractures or unkempt General Appearance ED: well developed and NAD; Negative for unkempt, cachectic, contractures, cyanotic, diaphoretic or pallor Nutritional Appearance: Negative for cachectic or obese HEENT Reports moist mucous membranes; Denies dry mucous membranes Negative for trauma or tenderness Mouth ED: No dry mucous membranes Mouth: No dry mucous membranes Eyes PERRL and EOMs intact bilaterally General Eye ED: Negative for pale conjunctiva or scleral icterus Neck no lymphadenopathy, supple and no JVD General: Negative for tenderness Lymph Lymphatic: Negative for other Chest Wall inspection of chest normal and palpation of chest normal Chest: Negative for other Resp normal respiratory effort and clear to auscultation bilaterally Effort and Inspection: Negative for retractions Auscultation: Negative for rales, rhonchi or wheezes Cardio regular rate, regular rhythm, S1 normal heart sound, S2 normal heart sound and no murmurs Palpation: Negative for palpable S3 or palpable S4 Rate: Negative for bradycardia or tachycardic Rhythm: Negative for abnormal rhythm GI normal to inspection, nondistended, normoactive bowel sounds, non-tender, non-distended and no masses Inspection: Negative for abdominal distention Auscultation: normoactive bowel sounds Palpation: soft; Negative for tender or guarding Back/Spine no CVA tenderness General Back: Negative for CVA tenderness Cervical Spine: Negative for cervical spine tenderness Thoracic Spine / Upper Back: Negative for thoracic spinal tenderness or paraspinal muscle tenderness Lumbar Spine / Lower Back: Negative for lumbar spinal tenderness Extremity normal to inspection General Extremety ED: Negative for edema or tenderness General Extremity: Negative for edema Neuro oriented x3 and CN's II-XII intact bilaterally Sensorium / Orientation: alert; Negative for lethargic or stuporous Motor Exam: strength 5/5 throughout Psych mental status grossly normal Appearance: Negative for unkempt Attitude: No agitated Mood & Affect: Negative for depressed, anxious or tearful Skin no rashes or lesions noted, no wounds and skin turgor normal General Skin Exam: elasticity normal; Negative for jaundice or pallor Lesions: No lesion noted Rashes: No rashes noted Trauma: Negative for abrasion Wounds: Negative for wounds noted MDM MDM MDM Narrative Medical decision making narrative: 33-year-old male with near syncopal episode. Exam currently is totally normal. Check an EKG for an abnormal rhythm even though his on exam he is in a sinus rhythm around 60. BG T and orthostatic vital signs. He has had recent labs his blood counts have been fine. Previously an elevated creatinine but he just had labs 2 days ago now and is BUN and creatinine were normal. As are his electrolytes. Repeat exam patient doing well at 8:46 AM patient doing well. Current blood pressure is 110/74. He is at that is his baseline. Current heart rates around 60. Patient is comfortable being discharged home. He will be given off work today. Fluids and rest. Hold his Cardizem dose today. Follow-up with his pouncer machine to see if they need to change his Cardizem dosage if his pressure and/or heart rate is running low. Lab Data Attestation: I reviewed the patient's lab results. Lab results narrative: Blood sugar 89. Orthostatic vital signs unremarkable. Sinus bradycardia rate of 53 no acute signs of SD or ischemia or dysrhythmia. Labs: Laboratory Results - last 24 hr 07/05/23 07:33 POC Glucose 89 Rhythm Strip Rhythm Strip: Sinus Rhythm Rate: 53 Ectopy: None EKG Initial EKG: Attestation: I personally reviewed and interpreted this EKG as follows: Interpretation: Sinus Rhythm and No Acute Injury Pattern Comments: Sinus bradycardia rate of 53 no acute signs of SD, ischemia or dysrhythmia. Discharge Plan Triage Chief Complaint: Syncope ED Provider: Toñito Olson Dx/Rx/DC Orders Clinical Impression: Bradycardia, Near syncope Instructions: ED Bradycardia, ED Near-Fainting, Uncertain Cause Prescriptions: No Action sertraline 25 mg tablet 25 mg PO QHS diltiazem HCl 120 mg capsule,extended release 24hr 120 mg PO QHS Qty: 90 3RF Primary Care Provider: Troy Cardenas Referrals: Troy Cardenas MD [Primary Care Provider] - 3-5 Days Activity Restrictions/Additional Instructions: Off work today. Plenty of fluids and rest. Hold your Cardizem dose today. Check your blood pressure and heart rate several times a day. If it continues to run low either your blood pressure or heart rate follow-up with your doctor they may need to adjust your Cardizem dose. Disposition Disposition: Home, Self Care
[2023-07-05 07:29] VITALS: BP 106/71; BP 98/69; BP 99/60; PULSE 56; PULSE 62; PULSE 64
[2023-07-05 07:51] LABS: Bedside Glucose 89 mg/dL (74-106)
[2023-07-05 09:04] VITALS: BP 112/75; PULSE 68; RESP 16; O2SAT 100
[2023-07-05 13:32] LABS: Bedside Glucose 103 mg/dL (74-106)
== END 2023-07-05 09:05 | disposition home or self-care (01) ==
PROVIDERS: Emergency Provider Emergency Medicine; PCP Family Medicine; Visit Provider Emergency Medicine
DX: R55 Syncope and collapse (principal); Z87.891 Personal history of nicotine dependence; R00.1 Bradycardia, unspecified; F41.9 Anxiety disorder, unspecified; Z79.899 Other long term (current) drug therapy
CPT/HCPCS: 82962; 93005; 99283

== ENCOUNTER → 2023-11-15 | Outpatient (CLI) | payer BC, SELFPAY ==
--- NOTE | 2023-11-15 13:23 | CT_ITS ---
STUDY: CT CHEST WITHOUT CONTRAST REASON FOR EXAM: Male, 33 years old. Air trapping, hx vamping, concern restrictive lung dz RADIATION DOSAGE (If Supplied By Facility): CTDIvol = ( 6.25 ) mGy, DLP = ( 265.35 ) mGycm TECHNIQUE: Transaxial imaging was performed without the administration of intravenous contrast material. Individualized dose optimization techniques were used for this CT. COMPARISON: No relevant priors. FINDINGS: CHEST Hyperinflation. Mild degree of emphysematous changes. No focal lesion or infiltrate is seen. There is no demonstrated pleural abnormality. Normal heart and pericardium. Normal mediastinum. Normal hilar regions. Normal unenhanced pulmonary arteries. Normal aorta arch and descending thoracic aorta. Normal osseous structures. There is no demonstrated abnormality of the visualized upper abdomen. CT/Chest without Contrast IMPRESSION: Hyperinflation. Mild degree of emphysematous changes. Electronically Signed: Kennedy Brown MD at 14:58 EDT ,
--- OUTSIDE RECORDS SUMMARY | 2023-11-15 21:29 | XMS RPT_ITS | CCD ---
Author Name Unknown Address [address] [place] [address] Organization [facility] Care Team Providers Care Logger All Round Name Role Phone CECILIA HAMMONDS Attending Unavailable CHARISSA SPENCE Primary Care Unavailable Kevin Lux Primary Care Provider Theresa QUINONEZ, Tryo Wharton Primary Care Provider Clemente Fontenot Unavailable [phone] Allergies Allergy Classification Reported Allergen(s) Allergy Type Date of Onset Reaction(s) Facility (1 source) Promethazine Drug Allergy 1 Mental Status Change 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; Translations: [Benign neoplasm of left conjunctiva] Episodic Past or Other Problems Problem Classification Problem Date Documented Da te Episodic/Chronic Neoplasms of unspecified nature or uncertain behavior (2 sources) Neoplasm of uncertain behavior of skin; Translations: [Neoplasm of uncertain behavior of skin] Onset: 08-03-2005 08-03-2005 Episodic Other and unspecified benign neoplasm (2 sources) Benign neoplasm of skin of trunk; Translations: [Other benign neoplasm of skin of trunk] Onset: 08-03-2005 08-03-2005 Episodic Other and unspecified benign neoplasm (2 sources) Benign neoplasm of skin of upper limb; Translations: [Other benign neoplasm of skin of unspecified upper limb, including shoulder] Onset: 08-03-2005 08-03-2005 Episodic Other skin disorders (2 sources) Acne; Translations: [Other acne] Onset: 08-03-2005 08-03-2005 Episodic Other skin disorders (2 sources) Scar conditions and fibrosis of skin; Translations: [Scar conditions and fibrosis of skin] Onset: 08-03-2005 08-03-2005 Episodic Results Test Name Value Interpretation Reference Range Facil ity Encounters Encounter Date Encounter Type Care Provider Facility Start: 03-16-2022 End: 03-16-2022 Patient encounter procedure Michele Velasquez MD Work Phone: Ophthalmology Procedures Date Procedure Procedure Detail Performing Clinician Start: 03-16-2022 Cmptr ophthalmic dx img ant segmt w/i&r uni/bi Michele Velasquez MD Work Phone: Start: 09-10-2010 CONVERTED SURGICAL PATHOLOGY Maikel Rainey Work Phone: Plan of Treatment Date Care Activity Detail Author Start: 05-05-2022 Influenza vaccination INFLUENZA (#1) [facility] Start: 05-05-2020 Influenza vaccination INFLUENZA (#1) [facility] Start: 02-27-2008 Urine microalbumin profile DTAP,TDAP ,TD (1 - Tdap) [facility] Start: 2007 HEPATITIS C SCREENING HEPATITIS C SC KEITHNING [facility] Start: 2007 HIV SCREENING HIV SCREENING [facility] Start: 2001 Adult depression [facility] assessment DEPRESSION SCREENING [facility] Start: 1989 COVID-19 VACCINE (#1) COVID-19 VACCI NE (#1) [facility] Payers Date Payer Category Payer Unknown MMO MMO [employer] [id number] 2021-Present [phone] [address] [place] [address] PPO [id number] 2018 Private Health Insurance [id number] 1989 Unknown [id number] 1989 Unknown [facility] GENERIC [id number] 1989-2012 Indemnity [id number] Social History Date Type Detail Facility Start: 01-06-2006 Tobacco smoking stat [facility] Never smoker [facility] Start: 01-06-2006 End: 03-16-2022 Alcohol intake Current non-drinker of alcohol (finding) [facility] Start: 1990 Sex Assigned At Not on file [facility] Start: 03-16-2022 Tobacco smoking stat [facility] Ex-smoker [facility] Start: 03-16-2022 Tobacco use and exposure Smoke less tobacco non-user [facility] Start: 03-04-2022 End: 03-14-2022 Exposure to SARS-CoV-2 (event) Not sure [facility] Progress note 03-16-2022 Note Date & Type Note Facility 03-16-2022 Note HNO ID: [id number] Author: Michele Velasquez MD Service: ? Author Type: Physician Type: Progress Notes Filed: 03/16/2022 10:43 AM Note Text: Assessment and Plan 1. 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 Was reddish in color and progressed to current appearance -no exposure to chemicals -has skin nevi with some biopsied - benign -benign appearance with no extension into angle or other areas of conjunctiva including on eyelid eversion. No choroidal lesions -photo today --OCT with intact overlying epithelium Plan: -reassured -continue follow-up Dr. Fontenot. Back to me if changes noted I have confirmed and edited as necessary the relevant ophthalmic history, ROS, and the neuro exam findings as obtained by others. I have seen and examined Francisco Hdez. I have discussed the case and the management of this patient's care with the Resident/Fellow, if applicable. I also have reviewed and agree with the assessment and plan as stated above and agree with all of its relevant components. Michele Velasquez MD March 16, 2022 10:37 AM [facility] History of Present illness Narrative 03-16-2022 Michele Velasquez MD - 03/16/2022 10:37 AM EDT Note Date & Type Note Facility 03-16-2022 History of Presen t illness Narrative Assessment and Plan 1. 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 Was reddish in color and progressed to current appearance -no exposure to chemicals -has skin nevi with some biopsied - benign -benign appearance with no extension into angle or other areas of conjunctiva including on eyelid eversion. No choroidal lesions -photo today --OCT with intact overlying epithelium Plan: -reassured -continue follow-up Dr. Fontenot. Back to me if changes noted I have confirmed and edited as necessary the relevant ophthalmic history, ROS, and the neuro exam findings as obtained by others. I have seen and examined Francisco Hdez. I have discussed the case and the management of this patient's care with the Resident/Fellow, if applicable. I also have reviewed and agree with the assessment and plan as stated above and agree with all of its relevant components. Michele Velasquez MD March 16, 2022 10:37 AM documented in this encounter [facility] Evaluation note Note Date & Type Note Facility documented in this encounter [facility] Summary Purpose Family History No Family History Records FoundNo Family History Records Found Advance Directives No Advanced Directives Records FoundNo Advanced Directives Records Found Medications Administered Section Active Administered Medications - up to 3 most recent administrations Medication Order MAR Action Action Date Dose Rate Site PHENYLephrine 2.5 % 1 Drop (AK-DILATE, ANDRE-SYNEPHRINE) 1 Drop, BOTH EYES, DIRECTED, Starting on Mon03/16/22 at 1030, Until Mon03/16/22 at 2229, Administer for dilation PROTECT FROM LIGHT Given 03/16/2022 10:30 AM EDT 1 Drop tropicamide 1 % 1 Drop (MYDRIACYL) 1 Drop, BOTH EYES, DIRECTED, Starting on Mon03/16/22 at 1030, Until 03/16/22 at 2229, Administer for dilation Given 03/16/2022 10:30 AM EDT 1 Drop Additional Source Comments (unrecognized sect ion and content) No Status Records FoundNo Status Records Found INFORMATION SOURCE (unrecogn ized section and content) DATE CREATED AUTHOR AUTHOR'S ORGANANKIT ATION 03/22/2022 [facility] Source Comments (unrecognize d section and content) In the event this informatio n is protected by the Federal Confidentiality of Alcohol and Drug Abuse Patient Records regulations: The Federal rules restrict any use of the information to criminally investigate or prosecute any alcohol or drug abuse patient.[facility] the event this information is protected by the Federal Confidentiality of Alcohol and Drug Abuse Patient Records regulations: The Federal rules restrict any use of the information to criminally investigate or prosecute any alcohol or drug abuse patient.[facility] Reason for Visit (unrecogniz ed section and content) Care Teams (unrecognized sec tion and content) FOR RECORDS PERTAINING TO PATIENTS WHO ARE OR HAVE BEEN ENROLLED IN A CHEMICAL DEPENDENCY/SUBSTANCEABUSE PROGRAM, SOME INFORMATION MAY BE OMITTED. This clinical summary was aggregated from multiple sources. Caution should be exercised in using it in the provision of clinical care. This summary normalizes information from multiple sources, and as a consequence, information in this document may materially change the coding, format and clinical context of patient data. In addition, data may be omitted in some cases. CLINICAL DECISIONS SHOULD BE BASED ON THE PRIMARY CLINICAL RECORDS. [employer] [facility]. provides no warranty or guarantee of the accuracy or completeness of information in this document.
== END | disposition home or self-care (01) ==
LOC: CT 13:20
PROVIDERS: PCP Family Medicine; Referring Provider Family Medicine; Visit Provider Family Medicine
DX: R07.89 Other chest pain (principal); R06.02 Shortness of breath; R09.89 Other specified symptoms and signs involving the circulatory and respiratory systems
CPT/HCPCS: 71250

== ENCOUNTER → 2024-02-13 | Outpatient (CLI) | payer BC, SELFPAY ==
[2024-02-13 17:41] LABS: Absolute Lymphocyte Count 1.25 X10^3/uL (0.83-4.51); Absolute Neutrophil Count 5.5 X10^3/uL (2.0-7.7); Basophil# 0.05 X10^3/uL; Basophil% 0.7 % (0-1); Eosinophil# 0.09 X10^3/uL; Eosinophils% 1.2 % (0-5); Hematocrit 45.1 % (40-54); Hemoglobin 15.5 g/dL (13.0-16.5); Lymphocyte # 1.25 X10^3/ul (0.83-4.51); Lymphocyte % 16.9 % (19-41); Mean Corp Hgb Conc 34.4 g/dL (32-36); Mean Corpuscular Hgb 30.7 pg (27.0-32.0); Mean Corpuscular Volume 89.3 fL (80-94); Mean Platelet Vol. 9.3 fl (6.2-12.0); Monocyte# 0.46 X10^3/uL; Monocyte% 6.2 % (0-10); NRBC Flagged by Analyzer 0 % (0-5); Neutrophil # 5.54 X10^3/uL (2.7-7.7); Neutrophil % 74.9 % (47-70); Platelet Count 225 K/mm3 (150-450); RBC Distribution Width CV 12.2 % (11.6-14.6); RBC Distribution Width SD 39.9 fl (35.1-43.9); Red Blood Count 5.05 M/mm3 (4.6-6.2); White Blood Count 7.4 K/mm3 (4.4-11.0)
[2024-02-13 18:05] LABS: ALB/GLOB Ratio 1.6 RATIO (0.9-2.4); AST(SGOT) 16 U/L (15-37); Alanine Aminotransfer ALT/SGPT 25 U/L (16-61); Albumin, Serum 4.6 g/dL (3.2-5.0); Alkaline Phosphatase 101 U/L (45-117); Anion Gap 3 (5-15); BUN 11 mg/dL (7-18); BUN/Creat Ratio 11.4 RATIO (10-20); Calcium,Total 9.7 mg/dL (8.5-10.1); Chloride 106 mmol/L (98-107); Creatinine, Serum 0.96 mg/dL (0.70-1.30); EST Glomerular Filtration Rate 94 mL/min (>60); Est Glom Filt Rate - Afr Amer 114 mL/min (>60); Globulin 2.8 g/dL (2.2-4.2); Glucose 107 mg/dL (74-106); Magnesium 2.4 mg/dL (1.6-2.6); Potassium 4.2 mmol/L (3.5-5.1); Protein, Total 7.4 g/dL (6.4-8.2); Sodium Level 138 mmol/L (136-145); Thyroid Stim Hormone (TSH) 1.08 uIU/mL (0.358-3.74)
== END | disposition home or self-care (01) ==
PROVIDERS: PCP Family Medicine; Referring Provider Family Medicine; Visit Provider Family Medicine
DX: I47.29 Other ventricular tachycardia (principal)
CPT/HCPCS: 36415; 80053; 83735; 84443; 85025

== ENCOUNTER → 2024-04-19 | Outpatient (CLI) | payer BC, SELFPAY ==
--- NOTE | 2024-04-19 10:04 | ECHOD_ITS ---
Reason For Study: NSVT Procedure This was a 2D Doppler, Color Flow transthoracic echocardiogram. Myocardial strain analysis was performed in this exam to aid in the assessment of cardiac function. Exam performed in department. Left Ventricle Normal LV size. The estimated ejection fraction is 55 %. No evidence for diastolic dysfunction. No regional wall motion abnormalities noted. Right Ventricle Normal RV size. Normal systolic function. Atria The left and right atria are normal. No doppler evidence for ASD. Mitral Valve There is no mitral valve stenosis. No mitral valve insufficiency. Tricuspid Valve There is no tricuspid stenosis. Trivial tricuspid valve insufficiency. Unable to estimate RV systolic pressure due to insufficient tricuspid regurgitant envelope. Aortic Valve Trisinus/trileaflet aortic valve. There is no aortic stenosis. No aortic valve insufficiency. Pulmonic Valve There is no pulmonic valvular stenosis. No pulmonic valve insufficiency. Great Vessels Normal aortic root. Pericardium/Pleural No pericardial effusion. MMode/2D Measurements & Calculations LVIDd: 5.2 cm IVSd: 0.80 cm Ao root diam: 3.2 cm LVIDs: 3.7 cm LVPWd: 0.96 cm LA dimension: 3.1 cm RVDd: 3.3 cm FS: 28.5 % LAV(MOD-bp): 38.9 ml LVAd ap4: 31.1 cm2 SV(MOD-sp4): 55.2 ml LAV(MOD-bp) Indexed: 19.2 ml/m2 LVLd ap4: 8.0 cm LAV(MOD-sp2): 45.9 ml EDV(MOD-sp4): 101.1 ml LAV(MOD-sp4): 33.0 ml EDV(sp4-el): 102.5 ml LVAs ap4: 19.4 cm2 LVLs ap4: 7.1 cm ESV(MOD-sp4): 45.9 ml ESV(sp4-el): 45.0 ml EF(MOD-sp4): 54.6 % EF(sp4-el): 56.1 % SV(sp4-el): 57.5 ml LA A4 area: 14.2 cm2 RA A4 area: 14.7 cm2 TAPSE: 1.9 cm Time Measurements MV dec time: 0.21 sec Doppler Measurements & Calculations MV E max tone: 63.6 cm/sec Lat Peak E' Tone: 19.5 cm/sec Med Peak E' Tone: 15.4 cm/sec MV A max tone: 46.5 cm/sec E/E' lat: 3.3 E/E' med: 4.1 MV E/A: 1.4 MV V2 max: 63.8 cm/sec MV P1/2t max tone: 63.8 cm/sec Ao V2 max: 123.8 cm/sec MV max P.6 mmHg MV P1/2t: 62.8 msec Ao max P.1 mmHg MV V2 mean: 35.6 cm/sec MV dec slope: 297.5 cm/sec2 Ao V2 mean: 86.9 cm/sec MV mean P.60 mmHg Ao mean P.5 mmHg MV V2 VTI: 25.7 cm MVA(P1/2t): 3.5 cm2 Ao V2 VTI: 28.7 cm AV (velocity ratio): 0.95 LV V1 max: 115.0 cm/sec PA V2 max: 84.1 cm/sec TR max tone: 229.4 cm/sec LV V1 max P.3 mmHg PA max PG (full): 0.38 mmHg TR max P.1 mmHg LV V1 mean P.1 mmHg PA V2 mean: 56.1 cm/sec LV V1 mean: 81.7 cm/sec PA mean PG (full): 0.19 mmHg LV V1 VTI: 27.1 cm ECHO/Echo Complete Interpretation Summary The estimated ejection fraction is 55 %. No evidence for diastolic dysfunction. Ordering Physician: Colten Jha Referring Physician: Dio Mccann Performed By: Kashif Valerio RCS
== END | disposition home or self-care (01) ==
LOC: CVS 10:01
PROVIDERS: PCP Family Medicine; Referring Provider Family Medicine; Visit Provider Family Medicine
DX: I47.29 Other ventricular tachycardia (principal)
CPT/HCPCS: 93306

== ENCOUNTER → 2024-07-29 | Outpatient (CLI) | payer BC, SELFPAY | END | disposition home or self-care (01) | PROVIDERS: PCP Family Medicine; Referring Provider Internal Medicine Pulmonary Disease; Visit Provider Internal Medicine Pulmonary Disease | DX: R06.00 Dyspnea, unspecified (principal); R07.1 Chest pain on breathing | CPT/HCPCS: 94060; 94726; 94729 ==

== ENCOUNTER → 2024-07-31 | Outpatient (CLI) | payer BC, SELFPAY ==
[2024-07-31 10:59] VITALS: PULSE 78; PULSE 80; PULSE 90; PULSE 91; PULSE 92; PULSE 94; O2SAT 95; O2SAT 96; O2SAT 97; O2SAT 98; O2SAT 99
--- NOTE | 2024-08-06 14:23 | PCM.PSN.6M ---
PSN 6 Minute Walk Test 6 Minute Walk Test 6 Minute Walk Test: 6 Minute Walk Test PSN:6-Minute Walk Test Start: 07/31/24 10:59 Freq: Status: Active Protocol: RESP.6MINW Document 07/31/24 10:59 [facility] (Rec: 07/31/24 11:02 [facility] [id number]) 6 Minute Walk Test Date Performed 07/31/24 Time Performed 10:45 Height 6 ft 5 in Weight: 160 lb Weight in Pounds 160.[address]: Dio Mccann V Assistive device used: None Pre-test Oxygen Delivery Method Room Air Pulse Ox (%) 99 Pulse Rate (60-100 beats/min) 78 Dyspnea Coby Scale (0-10) 0 1st minute Oxygen Delivery Method Room Air Pulse Ox (%) 97 Pulse Rate (60-100 beats/min) 94 Dyspnea Coby Scale (0-10) 0 Number of Rests Taken 0 2nd minute Oxygen Delivery Method Room Air Pulse Ox (%) 95 Pulse Rate (60-100 beats/min) 92 Dyspnea Coby Scale (0-10) 0 Number of Rests Taken 0 3rd minute Oxygen Delivery Method Room Air Pulse Ox (%) 96 Pulse Rate (60-100 beats/min) 90 Dyspnea Coby Scale (0-10) 0 Number of Rests Taken 0 4th minute Oxygen Delivery Method Room Air Pulse Ox (%) 98 Pulse Rate (60-100 beats/min) 91 Dyspnea Coby Scale (0-10) 0 Number of Rests Taken 0 5th minute Oxygen Delivery Method Room Air Pulse Ox (%) 97 Pulse Rate (60-100 beats/min) 94 Dyspnea Coby Scale (0-10) 0 Number of Rests Taken 0 6th minute Oxygen Delivery Method Room Air Pulse Ox (%) 96 Pulse Rate (60-100 beats/min) 91 Dyspnea Coby Scale (0-10) 0 Number of Rests Taken 0 Post-test Oxygen Delivery Method Room Air Pulse Ox (%) 97 Pulse Rate (60-100 beats/min) 80 Dyspnea Coby Scale (0-10) 0 Full Laps Walked 24 Partial Lap, Number of Tiles Walked 14 Total Distance Walked (ft) 1430 Interpretation Interpretation: The patient ambulated 1430 feet over the course of 6 minutes beginning on room air without assistive devices. Pretesting oxygen saturation was noted to be 99% on room air. With ambulation, the avila oxygen saturation was 95%. There was no significant exertional oxygen desaturation. Recommendations Recommendations: There is no indication for the use of supplemental oxygen at this time.
== END | disposition home or self-care (01) ==
LOC: PSN 10:36
PROVIDERS: PCP Family Medicine; Referring Provider Internal Medicine Pulmonary Disease; Visit Provider Internal Medicine Pulmonary Disease
DX: R06.00 Dyspnea, unspecified (principal); R07.1 Chest pain on breathing
CPT/HCPCS: 94618

== ENCOUNTER → 2024-08-27 | Outpatient (CLI) | payer BC, SELFPAY ==
--- NOTE | 2024-08-27 11:11 | RAD_ITS ---
STUDY: X-RAY EXAMINATION: SCOLIOSIS SERIES REASON FOR EXAM: Male, 34 years old. CHRONIC LOW BACK PAIN TECHNIQUE: 1 view(s) of the thoracolumbar spine were obtained in the upright standing position. COMPARISON: None. FINDINGS: There is a 9 degree dextroscoliosis of the thoracic spine with the apex of the convexity at the T10 level. Normal kyphosis of the thoracic spine. Normal thoracic vertebrae and endplates. Normal disc space heights of the thoracic spine. Normal lordosis of the lumbar spine. Normal lumbar vertebrae and endplates. Normal disc space heights of the lumbar spine. The soft tissue structures are unremarkable. RAD/Scoliosis 1 view IMPRESSION: Mild dextroscoliosis of the thoracolumbar spine. Electronically Signed: Maikel Teran MD at 15:26 EST ,
--- NOTE | 2024-08-27 11:11 | RAD_ITS ---
STUDY: X-RAY - LUMBAR SPINE REASON FOR EXAM: Male, 34 years old. LOW BACK PAIN TECHNIQUE: 2 view(s) of the lumbar spine were obtained. COMPARISON: None FINDINGS: Normal lumbar lordosis. Mild levoscoliosis centered at L4/L5. There is a normal alignment of the vertebrae. Normal vertebral bodies and endplates. Normal disc space heights. The soft tissue structures are unremarkable. RAD/Lumbar Spine 2 or 3 Views IMPRESSION: Mild levoscoliosis. Electronically Signed: Maikel Teran MD at 15:26 EST ,
== END | disposition home or self-care (01) ==
LOC: MTRAD 11:07
PROVIDERS: PCP Family Medicine; Referring Provider Family Medicine; Visit Provider Family Medicine
DX: M41.9 Scoliosis, unspecified (principal); G89.29 Other chronic pain
CPT/HCPCS: 72081; 72100

== ENCOUNTER 2024-09-18 13:55 | Outpatient (RCR) | payer BC, SELFPAY ==
--- NOTE | 2024-09-19 07:29 | HP.PTEVAL_ITS ---
Patient's Visit Information Visit Information Visit Information: JAYME WOODY is a 34 year old M referred to Physical Therapy by Dr. Dinh Street MD with a diagnosis of weak core, LBP, scoliosis, and post tib weakness. Date of Evaluation: 09/18/24 Physical Therapist: Clint Hurd DPT Visit Plan Frequency: 1x/Week Duration: 4 Weeks Plan: 1) HS stretching 2) postural strengthening, core strengthening 3) thoracic and lumbar stretching. Subjective Subjective: Pt. is here today for his initial evaluation with diagnosis weak core, LBP, scoliosis, and post tib weakness. Pt. reports having increased pain in his back after prolonged hunting and walking up hills. Pt. reports no LE symptoms. No N/T in either LE. Pt. reports no changes in B/B. Pt. reports no radicular symptoms noted. Pt. reports pain is mostly in his mid back. He reports hunting and having increased pain during this. Pt. is a assisted living nursing director in hospice. Pt. does have some pain in his back with patient care activities. Pt. was having some foot pain, but since buying new shoes he is doing better. Pt. is hopeful to reduce his back pain in order to get back to all previous levels of activities without limitations. Objective Objective: POSTURE: Pt. has marked thoracic kyphosis. Otherwise normal. PALAPTION: pt. has tenderness with PAs to distal thoracic spine, normal throughout lumbar spine. Marked hypomobility noted. NEURO: Pt. as normal sensation throughout BLEs. Pt. has normal DTR of BLEs. Pt. has no myotomal weakness noted. Pt. is able to rise on heels and toes without issues. ROM: LUMBAR SPINE: flexion min loss (tightness in HS), ext min loss mild increase NW, SB nil loss NE bilat, rotation nil loss NE bilat. Thoracic spine mod loss with extension, flexion normal, rotation min loss bilat. Normal B hip ROM, tightness in B HS (R HS 45deg in 90/90, L HS 55deg in 90/90) MMT: Pt. has decent strength throughout BLEs. Pt. has 5/5 B hip strength. poor+ core strength, measured in supine. GAIT: Fairly normal gait pattern noted. Pt. has good arm swing and normal LE ROM. Balance/Special Test Scores Oswestry Low Back Score: 5 Goals Goal 1:: LTG: Pt. to be I with HEP. Goal Time Frame: 4-6 Weeks Goal 2:: LTG: Pt. to have increased HS length by 25% bilaterally. Rehabilitation Potential Physical Therapy Diagnosis: Pt. has signs and symptoms consistent with weak core, LBP, scoliosis, and post tib weakness. Pt. has marked thoracic kyphosis, core weakness, and tight HS. Pt. would benefit to work on HS stretching, lumbar and thoracic mobility and core strengthening. Rehabilitation Potential: Excellent Anticipated Interventions Patient/Client Instruction: Educate patient on: Condition, Plan of Care, Risk Factors and Benefits of Fitness Program For the Purpose of:: To improve decision making, To facilitate caregiver knowle dge, To improve self management, To prevent re-injury and To improve ability to perform tasks related to life management Therapeutic Exercise to Include: Strength training, Power training, Balance training, Gait and locomotor training, Passive ROM, Active ROM, Dynamic Lumbar Stabilization and Nima Exercises For the Purpose of:: To decrease pain, To increase ROM, To improve nutrient delivery to tissue, To increase oxygenation perfusion and To improve muscle performance and motor function Text: Thank you for the opportunity to evaluate your patient. For Medicare and Medicare HMO plans, please review the plan of care and approve it. It will need to be FAXED BACK to us at [phone] for Medicare purposes. For Medicare only, by signing this I certify the plan of care. Please let me know if there are questions or concerns regarding this plan of care. Physician Signature : Date:
== END 2024-09-18 19:00 | disposition home or self-care (01) ==
LOC: PT 13:55
PROVIDERS: PCP Family Medicine; Referring Provider Family Medicine; Visit Provider Family Medicine
DX: M54.50 Low back pain, unspecified (principal); M41.9 Scoliosis, unspecified; M62.81 Muscle weakness (generalized)
CPT/HCPCS: 97110; 97161

== ENCOUNTER 2024-10-04 23:31 | Emergency (ER) | payer BC, SELFPAY ==
[2024-10-04 23:32] VITALS: BP 113/73; PULSE 90; RESP 18; TEMP 37; O2SAT 100
--- NOTE | 2024-10-04 23:52 | EX.ED.DYSGE1 ---
HPI History of Present Illness Chief Complaint: Nausea/Vomiting Informant: patient and spouse/S.O. Associated Symptoms Associated Symptoms ED: cough Narrative Narrative: 34-year-old male states within the last few hours suddenly felt like he had chills and started vomiting. Diffuse abdominal soreness but no other internal abdominal pain. Has not had any diarrhea yet, but I feel like I could go. He states multiple family members in the household have been diagnosed with influenza A recently, he has been ill with similar symptoms for the past 1 week, so presumed he had it and has not had any testing, but he has had no vomiting or bed chills like this until today. States he has emphysema and he is feeling a little wheezy and out of breath but not bad. He uses maintenance Trelegy but he does not have any nebulizer or rescue inhaler to use. [facility] Medical History (Updated 10/05/24 @ 01:[address] Juvenal Riggs MD) Emphysema lung MVP (mitral valve prolapse) Marfanoid habitus NSVT (nonsustained ventricular tachycardia) GERD (gastroesophageal reflux disease) Anxiety Consultation for sterilization Back problem Home Medications ?Medication ?Instructions ?Recorded ?Last Taken ?Type sertraline 25 mg tablet 25 mg PO QHS 04/29/23 Unknown History diltiazem HCl 120 mg 120 mg PO QHS #90 caps 06/21/24 Unknown Rx capsule,extended release 24 hr albuterol sulfate 90 mcg/actuation 1 - 2 puff inhalation Q4H PRN PRN 10/05/24 Unknown Rx aerosol inhaler (Ventolin HFA) Wheezing ##1 azithromycin 250 mg tablet See Rx Instructions PO .COMPLEX #6 10/05/24 Unknown Rx tabs ondansetron 8 mg disintegrating 8 mg PO Q8H PRN nausea and 10/05/24 Unknown Rx tablet vomiting #15 tabs Allergy/AdvReac Type Severity Reaction Status Date / Time promethazine (From Phenergan) Allergy Intermediate psychotic Verified 10/04/24 23:33 like reaction Family History Daughter Asthma Mother Breast cancer Grandfather Diabetes Kidney disease Surgical History No history of previous surgery Social History Smoking Status: Former smoker alcohol intake: current details: Rare substance use type: does not use caffeine: Yes Type: coffee Number of servings: 1 ROS ROS ED Constitutional Constitutional ED: Reports body ache(s), chills, fatigue, fever(s), headache(s) and malaise Eyes Eyes: Denies change in vision or diplopia ENT ENT ED: Denies rhinorrhea or sore throat Cardiovascular Cardiovascular: Denies chest pain or palpitations Respiratory/Chest Respiratory/Chest: Reports cough and dyspnea Gastrointestinal Gastrointestinal: Reports diarrhea, nausea and vomiting; Denies abdominal pain, hematemesis or hematochezia Genitourinary Genitourinary ED: Denies dysuria or hematuria Musculoskeletal Musculoskeletal: Denies back pain or neck pain Integumentary Denies abscess or rash Neurologic Neurologic: Reports headache(s); Denies paresthesias or weakness EXAM Physical Exam Const Vital Signs: 10/04/24 23:32 Temperature 98.6 F Temperature Source Oral Pulse Rate 90 Respiratory Rate 18 Blood Pressure 113/73 Blood Pressure Mean 86 Pulse Ox 100 Oxygen Delivery Method Room Air Positive well nourished and well developed Constitutional Narrative: Malaised-appearing, no distress General Appearance ED: well developed and NAD HEENT Reports moist mucous membranes normocephalic and atraumatic Eyes PERRL and EOMs intact bilaterally Neck full ROM and supple Resp normal respiratory effort and clear to auscultation bilaterally Cardio regular rate, regular rhythm and no murmurs Rate: Negative for tachycardic GI non-tender and non-distended Auscultation: normoactive bowel sounds Palpation: soft Back/Spine no CVA tenderness General Back: other FROM Extremity normal to inspection and no calf tenderness General Extremety ED: Negative for edema, pulses abnormal or tenderness General Extremity: Negative for edema or pulses abnormal Neuro oriented x3, CN's II-XII intact bilaterally and no sensory deficits noted Sensorium / Orientation: awake and alert Motor Exam: strength 5/5 throughout Skin no rashes or lesions noted and no wounds MDM MDM MDM Narrative Medical decision making narrative: Patient was given a liter of IV fluids as well as a dose of IV Zofran, is feeling much better on reevaluation, less nauseated tolerating oral fluids. Basic labs show a leukocytosis with a strong leftward shift no bandemia, his vital signs are normal pulse ox 100% on room air, he is lungs sound clear to me, but diminished due to his emphysema, and a two-view chest x-ray on my interpretation shows hyperexpansion, I do not see any focal infiltrates but radiology states there is a new hazy subtle infiltrate in the left upper lobe that is new compared with his prior film, consistent with pneumonia in context. Patient sounds like he has had influenza A for the last week, this could be a bacterial superinfection, it does not appear to necessarily be strep, so I am going to treat him with a Z-Jose and have him follow-up as an outpatient. Also given prescriptions for nausea medication, and albuterol inhaler since he has never had one, I do not think he needs prednisone right now, follow-up advised. Lab Data Attestation: I reviewed the patient's lab results. Labs: Laboratory Results - last 24 hr 10/05/24 00:18 WBC 16.5 H RBC 4.37 L Hgb 13.6 Hct 37.2 L MCV 85.1 MCH 31.1 MCHC 36.6 H RDW Std Deviation 36.4 RDW Coeff of Fiordaliza 11.9 Plt Count 186 MPV 8.8 Immature Gran % (Auto) 0.500 Neut % (Auto) 89.8 H Lymph % (Auto) 3.2 L Corson % (Auto) 6.1 Eos % (Auto) 0.1 Baso % (Auto) 0.3 Absolute Neuts (auto) 14.8 H Absolute Lymphs (auto) 0.52 L Nucleated RBC % 0 Sodium 140 Potassium 3.2 L Chloride 109 H Carbon Dioxide 23.0 Anion Gap 8 BUN 12 Creatinine 0.93 Estim Creat Clear Calc 120.59 Est GFR (MDRD) Af Amer 119 Est GFR (MDRD) Non-Af 98 BUN/Creatinine Ratio 12.9 Glucose 131 H Calcium 8.5 Radiography Diagnostic Testing: Clinical Impression(s) from Imaging Studies Chest X-Ray 10/04/24 23:59 IMPRESSION: 1. Hyperinflation 2. New subtle hazy airspace disease involving the left lower lobe. Correlate for an infectious or inflammatory process. Follow-up to resolution recommended Reading [facility] Discharge Plan Triage Chief Complaint: Nausea/Vomiting ED Provider: Juvenal Riggs Dx/Rx/DC Orders Clinical Impression: Pneumonia, Vomiting, Hypokalemia Instructions: ED Pneumonia (Adult) Prescriptions: New ondansetron 8 mg tablet,disintegrating 8 mg PO Q8H PRN (Reason: nausea and vomiting) Qty: 15 0RF albuterol sulfate [Ventolin HFA] 90 mcg/actuation HFA aerosol inhaler 1 - 2 puff inhalation Q4H PRN PRN (Reason: Wheezing) Qty: 1 0RF azithromycin 250 mg tablet See Rx Instructions PO .COMPLEX Qty: 6 0RF Rx Instructions: For 250 mg dose pack: take 500 mg today (day 1), then 250 mg for 4 days (days 2-5) Continued sertraline 25 mg tablet 25 mg PO QHS diltiazem HCl 120 mg capsule,extended release 24hr 120 mg PO QHS Qty: 90 3RF Stand Alone Forms: ED Work / School Excuse Primary Care Provider: Troy Cardenas Referrals: Troy Cardenas MD [Primary Care Provider] - 3-5 Days Print Language: French Disposition Disposition: Home, Self Care
--- NOTE | 2024-10-04 23:59 | RAD_ITS ---
PROCEDURE: CHEST PA AND LATERAL REASON FOR EXAM: Nausea and vomiting. Weakness. TECHNIQUE: Frontal and lateral views of the chest. COMPARISON: 11/15/2023 FINDINGS: Hyperinflation. Hazy airspace disease now seen within the left lower lobe. No pneumothorax or pleural effusion is seen. Heart size and great vessels are within normal limits. Osseous thorax appears intact. Trace spondylotic change involving the mid to lower thoracic spine. RAD/Chest PA and Lateral IMPRESSION: 1. Hyperinflation 2. New subtle hazy airspace disease involving the left lower lobe. Correlate f or an infectious or inflammatory process. Follow-up to resolution recommended Reading Location: [facility]
[2024-10-05] MEDS: 0.9% Normal Saline (1000mL) 1,000 ML 999 ML IV (00:06)
[2024-10-05] MEDS: Ondansetron 4 MG/2 ML Vial IV (00:07)
[2024-10-05 00:36] LABS: Absolute Lymphocyte Count 0.52 X10^3/uL (0.83-4.51); Absolute Neutrophil Count 14.8 X10^3/uL (2.0-7.7); Basophil# 0.05 X10^3/uL; Basophil% 0.3 % (0-1); Eosinophil# 0.01 X10^3/uL; Eosinophils% 0.1 % (0-5); Hematocrit 37.2 % (40-54); Hemoglobin 13.6 g/dL (13.0-16.5); Lymphocyte # 0.52 X10^3/ul (0.83-4.51); Lymphocyte % 3.2 % (19-41); Mean Corp Hgb Conc 36.6 g/dL (32-36); Mean Corpuscular Hgb 31.1 pg (27.0-32.0); Mean Corpuscular Volume 85.1 fL (80-94); Mean Platelet Vol. 8.8 fl (6.2-12.0); Monocyte% 6.1 % (0-10); NRBC Flagged by Analyzer 0 % (0-5); Neutrophil # 14.83 X10^3/uL (2.7-7.7); Neutrophil % 89.8 % (47-70); POSITIVE DIFFERENTIAL YES; Platelet Count 186 K/mm3 (150-450); RBC Distribution Width CV 11.9 % (11.6-14.6); RBC Distribution Width SD 36.4 fl (35.1-43.9); Red Blood Count 4.37 M/mm3 (4.6-6.2); White Blood Count 16.5 K/mm3 (4.4-11.0)
[2024-10-05 00:49] LABS: Anion Gap 8 (5-15); BUN 12 mg/dL (7-18); BUN/Creat Ratio 12.9 RATIO (10-20); Calcium,Total 8.5 mg/dL (8.5-10.1); Chloride 109 mmol/L (98-107); Creatinine, Serum 0.93 mg/dL (0.70-1.30); EST Glomerular Filtration Rate 98 mL/min (>60); Est Glom Filt Rate - Afr Amer 119 mL/min (>60); Estimated Creatinine Clearance 120.59 ml/min; Glucose 131 mg/dL (74-106); Potassium 3.2 mmol/L (3.5-5.1); Sodium Level 140 mmol/L (136-145)
[2024-10-05 01:31] VITALS: RESP 16
== END 2024-10-05 01:52 | disposition home or self-care (01) ==
PROVIDERS: Emergency Provider Emergency Medicine; PCP Family Medicine; Visit Provider Emergency Medicine
DX: J18.9 Pneumonia, unspecified organism (principal); E87.6 Hypokalemia; Z87.891 Personal history of nicotine dependence
CPT/HCPCS: 71046; 80048; 85025; 96361; 96374; 99284; A4216; J2405

== ENCOUNTER → 2024-11-20 | Outpatient (CLI) | payer BC, SELFPAY ==
[2024-11-20 09:41] LABS: Absolute Lymphocyte Count 1.65 X10^3/uL (0.83-4.51); Absolute Neutrophil Count 3.9 X10^3/uL (2.0-7.7); Basophil# 0.07 X10^3/uL; Basophil% 1.1 % (0-1); Eosinophil# 0.15 X10^3/uL; Eosinophils% 2.4 % (0-5); Hematocrit 43.1 % (40-54); Lymphocyte # 1.65 X10^3/ul (0.83-4.51); Lymphocyte % 26.2 % (19-41); Mean Corp Hgb Conc 34.8 g/dL (32-36); Mean Corpuscular Hgb 31.1 pg (27.0-32.0); Mean Corpuscular Volume 89.2 fL (80-94); Monocyte# 0.51 X10^3/uL; Monocyte% 8.1 % (0-10); NRBC Flagged by Analyzer 0 % (0-5); Neutrophil # 3.89 X10^3/uL (2.7-7.7); Neutrophil % 61.9 % (47-70); Platelet Count 244 K/mm3 (150-450); RBC Distribution Width CV 12.9 % (11.6-14.6); RBC Distribution Width SD 42.5 fl (35.1-43.9); Red Blood Count 4.83 M/mm3 (4.6-6.2); White Blood Count 6.3 K/mm3 (4.4-11.0)
[2024-11-20 10:03] LABS: Anion Gap 12 (5-15); BUN 11 mg/dL (4-19); BUN/Creat Ratio 13.9 RATIO (10-20); Calcium,Total 9.5 mg/dL (7.6-11.0); Carbon Dioxide 22.6 mmol/L (21.0-32.0); Chloride 105 mmol/L (98-108); Creatinine, Serum 0.81 mg/dL (0.70-1.20); EST Glomerular Filtration Rate 118 (>60); Glucose 95 mg/dL (70-99); Potassium 4.2 mmol/L (3.3-5.1); Sodium Level 139 mmol/L (133-145)
== END | disposition home or self-care (01) ==
PROVIDERS: PCP Family Medicine; Referring Provider Student in an Organized Health Care Education/Training Program; Visit Provider Student in an Organized Health Care Education/Training Program
DX: R53.1 Weakness (principal); E87.6 Hypokalemia
CPT/HCPCS: 36415; 80048; 85025

== ENCOUNTER → 2024-12-31 | Outpatient (CLI) | payer BC, SELFPAY ==
--- NOTE | 2024-12-31 08:36 | CT_ITS ---
PROCEDURE: CTA CHEST W/WO CONTRAST (CTCTACHWW), 12/31/2024 REASON FOR EXAM: SHORTNESS OF BREATH, CHEST PAIN TECHNIQUE: CTA chest was performed with IV contrast. Multiplanar reformats and MIP reconstructions were generated. CONTRAST: Isovue 370 VOLUME: 100mL RADIATION DOSE SUMMARY: CTDlvol: 14.98+ 4.22 mGy DLP: 172.44 mGycm One or more dose reduction techniques were used (e.g., Automated exposure control, adjustment of the mA and/or kV according to patient size, use of iterative reconstruction technique). COMPARISON: None 11/15/2023 FINDINGS: Heart/pericardium: Unremarkable. Aorta: Unremarkable. Pulmonary arteries: Normal in caliber. No pulmonary embolism is identified. Lymph nodes: Unremarkable. Lungs/pleura: Mild focal clustered ill-defined mostly ground-glass nodularity in the lingula. There is an associated 3 mm solid-appearing micronodule in the lingula (series 2 image 96). 2 mm RIGHT upper lobe micronodule (image 221). Probable calcified granuloma in the subpleural LEFT lower lobe. Airways: Unremarkable. Chest wall: Unremarkable. Upper abdomen: Grossly unremarkable. Musculoskeletal: Trace scoliosis may be positional.. CT/CTA Chest W/WO Contrast IMPRESSION: 1. No pulmonary embolism. 2. Findings are compatible with a minimal infectious/inflammatory process in th e LEFT upper lobe such as trace pneumonia. 3. Sub 4 mm micronodules, statistically benign and requiring no specific follow -up in a low risk patient. Otherwise, recommend follow-up CT chest in one year per the Fleischner society recommendations for p ulmonary nodule follow-up, presuming no history of malignancy or known immunosuppression. 4. Additional description as above. Reading Location: [id number]
--- NOTE | 2024-12-31 10:13 | RAD_ITS ---
PROCEDURE: CERV SPINE 4 OR 5 VIEWS 12/31/2024 REASON FOR EXAM: NECK PAIN WITH NERVE TECHNIQUE: 5 views of the cervical spine. FINDINGS: Vertebrae: No fracture. disc spaces: Disc spaces are maintained. Obliques: No neural foraminal stenosis. Alignment: No subluxation. soft tissues: No prevertebral soft tissue swelling. Other: RAD/Cerv Spine 4 or 5 Views IMPRESSION: NEGATIVE CERVICAL SPINE. Disclaimer: Reading Location: [id number]
== END | disposition home or self-care (01) ==
PROVIDERS: PCP Family Medicine; Referring Provider Student in an Organized Health Care Education/Training Program; Visit Provider Student in an Organized Health Care Education/Training Program
DX: R06.02 Shortness of breath (principal); R07.9 Chest pain, unspecified
CPT/HCPCS: 71275; 72050; Q9967

== ENCOUNTER → 2025-01-15 | Outpatient (CLI) | payer BC, SELFPAY ==
[2025-01-15 16:02] LABS: Erythrocyte Sedimentation Rate < 1 mm/hr (0-20)
[2025-01-15 16:58] LABS: CRP < 3.00 mg/L (0.0-3.0)
[2025-01-20 08:07] LABS: Angiotensin Convert Enzyme 39 U/L (14-82)
== END | disposition home or self-care (01) ==
LOC: MFPLAB 11:39
PROVIDERS: PCP Family Medicine; Visit Provider Internal Medicine Pulmonary Disease
DX: M94.0 Chondrocostal junction syndrome [Tietze] (principal); R06.00 Dyspnea, unspecified
CPT/HCPCS: 36415; 82164; 85652; 86140

== ENCOUNTER → 2025-01-22 | Outpatient (CLI) | payer BC, SELFPAY ==
--- NOTE | 2025-01-22 11:29 | NEURO ---
NCS and/or EMG Patient Report Ordering Doctor: Leida Membreno DATE OF SERVICE: 01/22/25 Francisco presents with complaints of heaviness in the right arm for about 6 months. He reports sharp shooting pain around the elbow. Electrodiagnostic findings: Right median motor nerve demonstrates prolonged latency with normal amplitude and conduction velocity. Right ulnar motor response is within normal limits. Normal right median ulnar radial sensory responses. Normal right median and ulnar F?waves. Needle EMG testing was performed the right upper limb. All muscles tested showed no evidence of denervation with normal motor unit action potentials. Electrodiagnostic impression: This an abnormal study of the right upper limb 1. Electrodiagnostic findings suggestive of right-sided median mononeuropathy. This consistent with a mild right carpal tunnel syndrome. 2. No electrodiagnostic evidence is noted for ulnar neuropathy, including cubital tunnel syndrome. 3. No electrodiagnostic evidence is noted for cervical radiculopathy or brachial plexopathy. Multi Select Codes Neurology Neurology Interp Codes: 98570-15 Musc test done w/n test comp (interp) and 54042-79 Nrv cndj test 7-8 studies (interp)
== END | disposition home or self-care (01) ==
PROVIDERS: PCP Family Medicine; Referring Provider Family Medicine; Visit Provider Family Medicine
DX: R20.0 Anesthesia of skin (principal); R20.2 Paresthesia of skin
CPT/HCPCS: 95886; 95909

== ENCOUNTER 2025-06-18 07:37 | Emergency (ER) | payer BC, SELFPAY ==
[2025-06-18 07:38] VITALS: BP 104/73; PULSE 63; RESP 15; TEMP 36.6; O2SAT 100; BMI 19.6
--- NOTE | 2025-06-18 07:59 | CT_ITS ---
EXAM: NONCONTRAST CT SCAN OF THE HEAD CLINICAL HISTORY: Near syncope, history of dizziness COMPARISON: None TECHNIQUE: Serial axial series through the head were obtained without contrast. 2-D coronal and sagittal reformats were then obtained. DLP = 846 mGy-cm FINDINGS: Brain: There is no acute large territorial infarct, intracranial hemorrhage, midline shift or mass effect. The sella and pineal gland regions appear unremarkable. There is no acute hydrocephalus. Basilar cisterns are patent. Paranasal sinuses: Well-aerated Mastoid air cells: Well-aerated. Calvarium: The bony calvarium is intact. Orbits: The bilateral globes are symmetric, without retrobulbar compressive mass lesion or hemorrhage. CT/Brain/Head without Contrast IMPRESSION: No acute intracranial pathology. Reading Location: [facility]
--- NOTE | 2025-06-18 08:00 | EKG12_ITS ---
Test Reason : SYNCOPE Blood Pressure : */* mmHG Vent. Rate : 55 BPM Atrial Rate : 55 BPM P-R Int : 160 ms QRS Dur : 94 ms QT Int : 428 ms P-R-T Axes : 76 73 73 degrees QTcB Int : 409 ms Sinus bradycardia Otherwise normal ECG Confirmed by DIANNA QUINONEZ, SUJATA ([id number]), assistant editor SIDNEY SMALL ([id number]) on 06/19/2025 9:59:23 AM Referred By: Confirmed By: SUJATA BUSTAMANTE MD
--- NOTE | 2025-06-18 08:03 | EX.ED.DYSGE1 ---
HPI History of Present Illness Chief Complaint: Syncope Narrative Narrative: Chief complaint and HPI: 35-year-old gentleman with past medical history of GERD, NSVT, marfanoid habitus presents for evaluation of near syncope. Patient states that he has a history of episodic lightheadedness. 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 States he then developed tunnel vision, nausea, paresthesias and felt as if he were going to pass out. States he sat down and symptoms improved. Did not lose consciousness. Vitals during the event were blood pressure 96/65, heart rate 66, 97% on room air. Blood glucose 121. He denies any fever, chills, shortness of breath, chest pain, abdominal pain. Review of systems: See HPI Medications: As listed on the chart Allergies: As listed on the chart PFSH: Per chart Vital signs: As listed on the chart. Reviewed. Physical exam: Gen: A&O x3, NAD Head: Normocephalic, atraumatic Eyes: No sclera icterus, conjunctiva clear, PERRL, EOMI ENT: Moist mucous membranes Neck: Trachea midline CV: RRR, no murmurs Resp: Lungs CTA BL, no w/r/c GI: Abd soft, non-distended, non-tender, no r/r/g Musc: Full ROM, no deformity Skin: Warm, dry Neuro: Alert, oriented, grossly intact, sensation intact Psych: Cooperative, appropriate mood and affect [facility] Medical History Emphysema lung MVP (mitral valve prolapse) Marfanoid habitus NSVT (nonsustained ventricular tachycardia) GERD (gastroesophageal reflux disease) Anxiety Consultation for sterilization Back problem Home Medications ?Medication ?Instructions ?Recorded ?Last Taken ?Type sertraline 25 mg tablet 25 mg PO QHS 04/29/23 Unknown History diltiazem HCl 120 mg 120 mg PO QHS #90 caps 06/21/24 Unknown Rx capsule,extended release 24 hr albuterol sulfate 90 mcg/actuation 1 - 2 puff inhalation Q4H PRN PRN 10/05/24 Unknown Rx aerosol inhaler (Ventolin HFA) Wheezing ##1 ondansetron 8 mg disintegrating 8 mg PO Q8H PRN nausea and 10/05/24 Unknown Rx tablet vomiting #15 tabs cetirizine 10 mg capsule (Zyrtec) 10 mg PO QDAY PRN 11/20/24 Unknown History fluticasone fur. 100 mcg-umeclid 1 inh inhalation QDAY 11/20/24 Unknown History 62.5 mcg-vilant 25 mcg inhalat.powder (Trelegy Ellipta) montelukast 10 mg tablet 10 mg PO QDAY 11/20/24 Unknown History Allergy/AdvReac Type Severity Reaction Status Date / Time promethazine (From Phenergan) Allergy Intermediate psychotic Verified 06/18/25 07:38 like reaction Family History Daughter Asthma Mother Breast cancer Grandfather Diabetes Kidney disease Surgical History No history of previous surgery Social History Smoking Status: Former smoker alcohol intake: current details: Rare substance use type: does not use caffeine: Yes Type: coffee Number of servings: 1 EXAM Physical Exam Const Vital Signs: 06/18/25 07:38 06/18/25 07:42 06/18/25 08:11 Temperature 97.9 F Temperature Source Oral Pulse Rate 63 Pulse Rate [Lying] 56 L Pulse Rate [Sitting (for 1 minute prior to obtaining)] 62 Pulse Rate [Standing (for 1 minute prior to obtaining)] 68 Respiratory Rate 15 Respiratory Effort Normal Respiratory Pattern Normal Blood Pressure 104/73 Blood Pressure [Lying] 106/70 Blood Pressure [Sitting (for 1 minute prior to obtaining)] 104/70 Blood Pressure [Standing (for 1 minute prior to obtaining)] 105/72 Blood Pressure Mean 83 Blood Pressure Mean [Lying] 82 Blood Pressure Mean [Sitting (for 1 minute prior to obtaining)] 81 Blood Pressure Mean [Standing (for 1 minute prior to obtaining)] 83 Pulse Ox 100 Oxygen Delivery Method Room Air 06/18/25 08:37 06/18/25 09:00 06/18/25 10:00 Temperature Temperature Source Pulse Rate 56 L 54 L 62 Pulse Rate [Lying] Pulse Rate [Sitting (for 1 minute prior to obtaining)] Pulse Rate [Standing (for 1 minute prior to obtaining)] Respiratory Rate 12 Respiratory Effort Respiratory Pattern Blood Pressure 112/77 118/87 H 111/77 Blood Pressure [Lying] Blood Pressure [Sitting (for 1 minute prior to obtaining)] Blood Pressure [Standing (for 1 minute prior to obtaining)] Blood Pressure Mean 88 97 88 Blood Pressure Mean [Lying] Blood Pressure Mean [Sitting (for 1 minute prior to obtaining)] Blood Pressure Mean [Standing (for 1 minute prior to obtaining)] Pulse Ox 100 100 100 Oxygen Delivery Method MDM MDM MDM Narrative Medical decision making narrative: 35-year-old gentleman with past medical history of GERD, NSVT, marfanoid habitus presents for evaluation of near syncope. Patient states that he has a history of episodic lightheadedness. 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 States he then developed tunnel vision, nausea, paresthesias and felt as if he were going to pass out. States he sat down and symptoms improved. Did not lose consciousness. Vitals during the event were blood pressure 96/65, heart rate 66, 97% on room air. Blood glucose 121. On presentation, patient no acute distress. Vitals are stable other than soft blood pressure at 104/73. Differential diagnosis includes but is not limited to near syncope, orthostatic hypotension, electrolyte abnormality, dehydration, arrhythmia, anemia, UTI, intracranial abnormality. NS bolus ordered. Patient declined Zofran as he states his nausea has resolved. Orthostatic vital signs negative. CBC without leukocytosis or anemia. D-dimer unremarkable. BMP unremarkable. Troponin unremarkable. CT of the head negative for any acute intracranial abnormality. UA negative for UTI but positive for ketones with this consistent with mild dehydration. On reevaluation, patient has been asymptomatic here in the emergency department. He is ambulated without difficulty. Patient stable to discharge home. No clear etiology for his near syncope at this time. Follow-up with primary care physician. Return precautions explained. He confirmed understand the plan. EKG: Interpreted by me/EM physician: EKG shows sinus bradycardia without any acute ischemic changes. Heart rate 55. This is similar to previous EKG on July 05, 2023. Diagnostic: Interpreted by me/EM physician: Chest x-ray doubt pneumonia, effusion, cardiomegaly, pneumothorax. Radiology in agreement. Impression: 1. Near syncope Lab Data Labs: Laboratory Results - last 24 hr 06/18/25 06/18/25 07:50 09:20 WBC 6.2 RBC 4.73 Hgb 15.2 Hct 41.4 MCV 87.5 MCH 32.1 H MCHC 36.7 H RDW Std Deviation 39.8 RDW Coeff of Fiordal[place] 12.5 Plt Count 215 MPV 9.2 Immature Gran % (Auto) 0.300 Neut % (Auto) 56.6 Lymph % (Auto) 31.2 [place] % (Auto) 9.1 Eos % (Auto) 1.8 Baso % (Auto) 1.0 Absolute Neuts (auto) 3.5 Absolute Lymphs (auto) 1.92 Nucleated RBC % 0 D-Dimer Quant (PE/DVT) < 0.27 L Sodium 138 Potassium 3.5 Chloride 101 Carbon Dioxide 24.9 Anion Gap 12 BUN 11 Creatinine 0.85 Estim Creat Clear Calc 127.79 Est GFR (MDRD) Non-Af 115 BUN/Creatinine Ratio 12.6 Glucose 130 H Calcium 9.7 Troponin T High Sens < 6 Urine Color Yellow Urine Clarity Sl Cloudy Urine pH 6.5 Ur Specific [place] 1.020 Urine Protein 30 H Urine Glucose (UA) Normal Urine Ketones 5 H Urine Occult Blood Negative Urine Nitrite Negative Urine Bilirubin Negative Urine Urobilinogen Normal Ur Leukocyte Esterase 25 H Urine RBC 0-5 SEEN Urine WBC 5-10 SEEN Ur Squamous Epith Cells 0 SEEN Urine Bacteria 0 SEEN Urine Mucus 1+ Radiography Diagnostic Testing: Clinical Impression(s) from Imaging Studies Brain CT 06/18/25 07:59 IMPRESSION: No acute intracranial pathology. Reading Location: [facility] Chest X-Ray 06/18/25 08:46 IMPRESSION: No acute cardiopulmonary process Reading Location: [id number] Discharge Plan Triage Chief Complaint: Syncope ED Provider: Kashif Candelaria Dx/Rx/DC Orders Prescriptions: No Action Zyrtec 10 mg capsule 10 mg PO QDAY PRN Trelegy Ellipta 100-62.5-25 mcg blister with device 1 inh inhalation QDAY montelukast 10 mg tablet 10 mg PO QDAY sertraline 25 mg tablet 25 mg PO QHS ondansetron 8 mg tablet,disintegrating 8 mg PO Q8H PRN (Reason: nausea and vomiting) Qty: 15 0RF albuterol sulfate [Ventolin HFA] 90 mcg/actuation HFA aerosol inhaler 1 - 2 puff inhalation Q4H PRN PRN (Reason: Wheezing) Qty: 1 0RF diltiazem HCl 120 mg capsule,extended release 24hr 120 mg PO QHS Qty: 90 3RF Primary Care Provider: Troy Cardenas Referrals: Troy Cardenas MD [Primary Care Provider, Family Practice] Print Language: Georgian
[2025-06-18 08:08] LABS: Hematocrit 41.4 % (40-54); Hemoglobin 15.2 g/dL (13.0-16.5); Immature Granulocytes Count 0.020 X10^3/uL (0.0-0.0); Mean Corp Hgb Conc 36.7 g/dL (32-36); Mean Corpuscular Volume 87.5 fL (80-94); Mean Platelet Vol. 9.2 fl (6.2-12.0); NRBC Flagged by Analyzer 0 % (0-5); Platelet Count 215 K/mm3 (150-450); RBC Distribution Width CV 12.5 % (11.6-14.6); RBC Distribution Width SD 39.8 fl (35.1-43.9); Red Blood Count 4.73 M/mm3 (4.6-6.2); White Blood Count 6.2 K/mm3 (4.4-11.0)
[2025-06-18 08:11] VITALS: BP 104/70; BP 105/72; BP 106/70; PULSE 56; PULSE 62; PULSE 68
[2025-06-18] MEDS: 0.9% Normal Saline (1000mL) 1,000 ML 1000 ML IV (08:19)
[2025-06-18 08:37] VITALS: BP 112/77; PULSE 56; RESP 12; O2SAT 100
[2025-06-18 08:39] LABS: Troponin T High Sensitivity < 6 ng/L (<=22)
[2025-06-18 08:40] LABS: Anion Gap 12 (5-15); BUN 11 mg/dL (4-19); BUN/Creat Ratio 12.6 RATIO (10-20); Calcium,Total 9.7 mg/dL (7.6-11.0); Carbon Dioxide 24.9 mmol/L (21.0-32.0); Chloride 101 mmol/L (98-108); D-Dimer Quantitative (DVT/PE) < 0.27 FEU/ug/m (0.27-0.49); Estimated Creatinine Clearance 127.79 ml/min (50-250); Glucose 130 mg/dL (70-99); Potassium 3.5 mmol/L (3.3-5.1)
--- NOTE | 2025-06-18 08:46 | RAD_ITS ---
PROCEDURE: CHEST PA AND LATERAL 06/18/2025 REASON FOR EXAM: NEAR SYNCOPE TECHNIQUE: Procedure Code: RADCXR Modality: DX Procedure: CHEST PA AND LATERAL COMPARISON: December 31, 2024, October 05, 2024 FINDINGS: Hardware: EKG leads Heart: The heart size is normal. Mediastinum: The mediastinal contour is unremarkable. Lungs: The lungs are clear. No pneumothorax or pleural effusion. Bones: The bones are unremarkable. RAD/Chest PA and Lateral IMPRESSION: No acute cardiopulmonary process Reading Location: [id number]
[2025-06-18 09:00] VITALS: BP 118/87; PULSE 54; O2SAT 100
[2025-06-18 09:38] LABS: Squamous Epithelial Cells - UA 0 SEEN /hpf (0-5)
[2025-06-18 09:45] LABS: Glucose, Dipstick Normal (Normal); Ketone-Dipstick 5 mg/dl (Negative); Leukocyte Esterase-Dipstick 25 /ul (Negative); Nitrite-Dipstick Negative (Negative); Occult Blood-Urine Negative /ul (Negative); Protein-Dipstick 30 mg/dl (Negative); Specific Gravity, Urine 1.020 (1.002-1.030); Urine Bilirubin Dipstick Negative (Negative)
[2025-06-18 09:53] LABS: Mucous, Urine 1+ /hpf (<or=2+); Red Blood Cells-Urine 0-5 SEEN /hpf (0-5)
[2025-06-18 09:54] LABS: Color, Urine Yellow (Yellow)
[2025-06-18 10:00] VITALS: BP 111/77; PULSE 62; O2SAT 100
[2025-06-18 10:29] VITALS: BP 119/77; PULSE 60; RESP 16; TEMP 36.7; O2SAT 98
== END 2025-06-18 10:34 | disposition home or self-care (01) ==
PROVIDERS: Emergency Provider Surgery; PCP Family Medicine; Visit Provider Surgery
DX: R55 Syncope and collapse (principal); J43.9 Emphysema, unspecified; R42 Dizziness and giddiness; Z87.891 Personal history of nicotine dependence; K21.9 Gastro-esophageal reflux disease without esophagitis
CPT/HCPCS: 70450; 71046; 80048; 81001; 82962; 84484; 85025; 85379; 93005; 96360; 96361; 99284; A4216